=== PATIENT | female | born 1935 | race African-American/Black ===

== ENCOUNTER 2017-10-28 15:43 | Emergency (ER) | payer MEDICARE, BC ==
[2017-10-28 18:04] LABS: #Lymphocytes 1.5 thou/uL (1.20-3.40); %Basophils 0.4 % (0.0-1.0); %Eosinophils 0.4 % (0.0-10.0); %Lymphocytes 17.8 % (21.0-51.0); %Monocytes 11.2 % (0.0-10.0); %Neutrophils 70.1 % (42.0-75.0); Hemoglobin 11.6 g/dL (12.0-16.0); Mean Corpuscular HGB CONC 31.8 g/dL (32.0-36.0); Mean Corpuscular Volume 94.1 fl (81.0-99.0); Mean Platelet Volume 8.8 fL (7.4-10.4); Platelet Count 246 thou/uL (130-400); RBC Distribution Width 13.7 % (11.5-14.5); Red Blood Cell (RBC) Count 3.86 mill/uL (4.20-5.40); White Blood Cell (WBC) Count 8.5 thou/uL (4.8-10.8)
[2017-10-28 18:19] LABS: ALT (SGPT) 9 U/L (8-55); AST (SGOT) 11 U/L (5-34); Albumin 3.7 g/dL (3.4-4.8); Alkaline Phosphatase 82 U/L (40-150); Anion Gap 17 mmol/L (10-20); BUN (Urea Nitrogen) 36 mg/dL (9.8-20.1); Bilirubin, Total 0.2 mg/dL (0.2-1.2); Calc. Creatinine Clearance 0 mL/min (70-130); Calcium 8.3 mg/dL (7.8-10.44); Carbon Dioxide 22 mmol/L (23-31); Chloride 108 mmol/L (98-107); Estimated GFR-MDRD 28; Globulin 3.2 g/dL (2.4-3.5); Glucose 90 mg/dL (83-110); Potassium 4.6 mmol/L (3.5-5.1); Protein, Total 6.9 g/dL (6.0-8.3); Sodium 142 mmol/L (136-145)
[2017-10-28] MEDS ORDERED: methylPREDNISolone Sod Succ/PF 125 MG/2 ML VIAL ONE (18:20)
[2017-10-28 18:26] LABS: CKMB 2.1 ng/mL (0-6.6); Troponin I Less than 0.010 ng/mL (< 0.028)
--- NOTE | 2017-10-28 18:32 | RAD ---
PORTABLE CHEST: 10/28/17 HISTORY: Cough, sore throat. COMPARISON: 05/24/17 exam. Heart size is within normal limits. There is increased density in the right infrahilar region. This d oes not obscure the right heart border and would suggest some right lower lobe infiltrate. IMPRESSION: Findings suggesting some right lower lobe infiltrate. POS: [facility]
--- NOTE | 2017-11-25 17:33 | EKG ---
Test Reason : DIAGNOSING PURPOSES Blood Pressure : / mmHG Vent. Rate : 078 BPM Atrial Rate : 078 BPM P-R Int : 190 ms QRS Dur : 166 ms QT Int : 418 ms P-R-T Axes : 066 -72 018 degrees QTc Int : 476 ms Normal sinus rhythm Right bundle branch block Left anterior fascicular block Bifascicular block Minimal voltage criteria for LVH, may be normal variant Possible Lateral infarct , age undetermined Abnormal ECG Confirmed by TYLER THOMPSON, JARETT ([id number]), electron gun assembler GIN DAVIS ([id number]) on 11/25/2017 5:33:11 PM Referred By: Confirmed By:JARETT SCOTT MD
== END 2017-10-28 19:26 | disposition home or self-care (01) ==
LOC: ERS 15:43
DX: J18.9 Pneumonia, unspecified organism (principal); J43.9 Emphysema, unspecified; E11.9 Type 2 diabetes mellitus without complications; E78.5 Hyperlipidemia, unspecified; I10 Essential (primary) hypertension; F17.210 Nicotine dependence, cigarettes, uncomplicated
CPT/HCPCS: 71045; 80053; 82553; 83605; 83880; 84484; 85025; 93005; 94640; 96374; 96375; J0696; J2930; J7620

== ENCOUNTER 2018-01-04 10:22 | Outpatient (CLI) | payer MEDICARE, BC ==
--- NOTE | 2018-01-04 12:15 | RAD ---
CHEST 2 VIEWS: Date: 01/04/18 HISTORY: Dyspnea. COMPARISON: 10/28/17. FINDINGS: Cardiac silhouette is unremarkable. Pulmonary vasculature is upper limits of normal. Infiltrates at t he lung bases have improved significantly, although linear atelectasis now projects over the superior segment right lower lobe and the left upper lobe. Mediastinum is midline with aortic calcification. Lungs are slightly hyperinflated. IMPRESSION: 1. Interval resolution of bibasilar infiltrates. Development of bilateral linear atelectasis. 2. COPD. 3. Atherosclerosis. POS: [facility]
== END 2018-01-04 10:23 | disposition home or self-care (01) ==
LOC: RAD 10:22
PROVIDERS: ATTEND Internal Medicine Critical Care Medicine
DX: R06.00 Dyspnea, unspecified (principal); J44.9 Chronic obstructive pulmonary disease, unspecified; I70.0 Atherosclerosis of aorta; R91.8 Other nonspecific abnormal finding of lung field
CPT/HCPCS: 71046

== ENCOUNTER 2018-01-24 13:41 | Outpatient (CLI) | payer MEDICARE, BC | END 2018-01-24 13:42 | disposition home or self-care (01) | LOC: BICULT 13:41 | PROVIDERS: ATTEND Urology | DX: D17.71 Benign lipomatous neoplasm of kidney (principal); N28.89 Other specified disorders of kidney and ureter | CPT/HCPCS: 76770 ==

== ENCOUNTER 2018-02-05 10:18 | Outpatient (CLI) | payer MEDICARE, BC ==
--- NOTE | 2018-02-05 11:21 | RAD ---
AP VIEW CHEST: HISTORY: Dyspnea. FINDINGS: AP view chest demonstrates areas of scarring seen in the left mid lung. There is some slight improve d aeration in the inferior aspect right upper lobe opacities noted on patient's previous radiograph f rom 01/04/18. No evidence of acute intrathoracic abnormality is seen. No evidence of effusions seen. IMPRESSION: Areas of scarring in the left mid lung. Otherwise, unremarkable AP view chest. POS: [facility]
== END 2018-02-05 10:19 | disposition home or self-care (01) ==
LOC: RAD 10:18
PROVIDERS: ATTEND Internal Medicine Critical Care Medicine
DX: R06.00 Dyspnea, unspecified (principal); J98.4 Other disorders of lung
CPT/HCPCS: 71046

== ENCOUNTER 2018-04-18 15:17 | Outpatient (CLI) | payer MEDICARE, BC | END 2018-04-18 15:18 | disposition home or self-care (01) | LOC: BICMAMMO 15:17 | PROVIDERS: ATTEND Internal Medicine | DX: Z12.31 Encounter for screening mammogram for malignant neoplasm of breast (principal) | CPT/HCPCS: 77063; 77067 ==

== ENCOUNTER 2018-06-12 13:33 | Outpatient (CLI) | payer MEDICARE, BC ==
--- NOTE | 2018-06-12 15:44 | CT ---
ABDOMEN AND PELVIC CT SCAN WITHOUT IV CONTRAST: 06/12/18 HISTORY: 83-year-old female with history of chronic kidney disease, renal mass. COMPARISON: Prior examination from [facility] 10/02/15. FINDINGS: Linear and parenchymal changes are noted in the lower lobes and lingula and right middle lobe evidenc e for some subsegmental atelectasis and/or scarring, slightly worse from the prior study. Stable some what contracted gallbladder with multiple gallstones without ductal dilatation. 2.6 cm diameter right renal fatty mass and a smaller, approximately 1.1 cm diameter left upper pole renal fatty mass, evid ence for bilateral angiomyolipomas. Nonobstructing right renal calculus. Stable bilateral adrenal song nomas. Normal appearing appendix. Lumbar spine spondylosis with mild anterolisthesis of L4 on L5 with associated stenosis. No obstructing calculus. Colonic diverticulosis without diverticulitis. Fat containing umbilical hernia. IMPRESSION: Stable multiple gallstones in a contracted gallbladder, bilateral adrenal adenomas, and bilateral vita al angiomyolipomas. Stable lumbar spine canal stenosis with anterolisthesis at L4-L5. Stable fat cont aining umbilical hernia. Linear parenchymal changes in both lungs evidence for scarring or subsegment al atelectasis slightly worse than when compared to the prior study. No evidence for other significan t acute process. POS: [facility]
== END 2018-06-12 13:34 | disposition home or self-care (01) ==
LOC: BICCT 13:33
PROVIDERS: ATTEND Internal Medicine Nephrology
DX: N18.3 Chronic kidney disease, stage 3 (moderate) (principal); K80.20 Calculus of gallbladder without cholecystitis without obstruction; D35.02 Benign neoplasm of left adrenal gland; D35.01 Benign neoplasm of right adrenal gland; D17.71 Benign lipomatous neoplasm of kidney; M48.061 Spinal stenosis, lumbar region without neurogenic claudication; M43.16 Spondylolisthesis, lumbar region; K42.9 Umbilical hernia without obstruction or gangrene
CPT/HCPCS: 74176

== ENCOUNTER 2018-06-19 14:01 | Outpatient (CLI) | payer MEDICARE, BC ==
[2018-06-19 14:53] LABS: #Eosinphils 0.3 thou/uL (0.0-0.7); #Lymphocytes 2.3 thou/uL (1.20-3.40); #Monocytes 0.5 thou/uL (0.11-0.59); %Basophils 0.3 % (0.0-1.0); %Eosinophils 4.2 % (0.0-10.0); %Lymphocytes 32.6 % (21.0-51.0); %Monocytes 7.3 % (0.0-10.0); %Neutrophils 55.6 % (42.0-75.0); Hemoglobin 11.7 g/dL (12.0-16.0); Mean Corpuscular HGB CONC 31.9 g/dL (32.0-36.0); Mean Corpuscular Hemoglobin 30.6 pg (27.0-31.0); Mean Corpuscular Volume 95.9 fL (78.0-98.0); Mean Platelet Volume 8.6 fL (7.4-10.4); Platelet Count 245 thou/uL (130-400); RBC Distribution Width 13.8 % (11.5-14.5); Red Blood Cell (RBC) Count 3.83 mill/uL (4.20-5.40); White Blood Cell (WBC) Count 7.2 thou/uL (4.8-10.8)
[2018-06-19 15:10] LABS: ALT (SGPT) 9 U/L (8-55); AST (SGOT) 9 U/L (5-34); Albumin 3.8 g/dL (3.4-4.8); Alkaline Phosphatase 59 U/L (40-150); Anion Gap 13 mmol/L (10-20); BUN (Urea Nitrogen) 33 mg/dL (9.8-20.1); Bilirubin, Total 0.3 mg/dL (0.2-1.2); Calc. Creatinine Clearance 0 mL/min (70-130); Calcium 8.6 mg/dL (7.8-10.44); Carbon Dioxide 25 mmol/L (23-31); Chloride 109 mmol/L (98-107); Estimated GFR-MDRD 27; Globulin 2.9 g/dL (2.4-3.5); Glucose 143 mg/dL (83-110); Potassium 4.6 mmol/L (3.5-5.1); Protein, Total 6.7 g/dL (6.0-8.3); Sodium 142 mmol/L (136-145)
--- NOTE | 2018-06-19 15:31 | RAD ---
CHEST 2 VIEWS: HISTORY: Preoperative exam. COMPARISON: None. FINDINGS: Atherosclerosis of the aorta. Enlarged cardiac silhouette. The pulmonary vessels and hilum are norm al. Costophrenic angles are clear. Patchy interstitial opacities, without consolidation or mass. N o pneumothorax or osseous abnormalities. IMPRESSION: 1. Atherosclerosis. 2. Patchy interstitial opacities which may be due to edema or infiltrate. POS: [facility]
== END 2018-06-19 14:02 | disposition home or self-care (01) ==
LOC: LABBT 14:01
PROVIDERS: ATTEND Specialist
DX: Z01.818 Encounter for other preprocedural examination (principal); K80.20 Calculus of gallbladder without cholecystitis without obstruction
CPT/HCPCS: 71046; 80053; 85025; 93005; 93010

== ENCOUNTER 2018-06-20 10:33 | Day surgery (SDC) | payer MEDICARE, BC ==
[2018-06-19 14:54] VITALS: BMI 33.5
--- NOTE | 2018-06-20 09:03 | HP ---
HISTORY OF PRESENT ILLNESS: Jonna León is an 83-year-old female with COPD, followed by Dr. Ciro Vazquez and Dr. Cohen. The patient has symptomatic gallstones, having undergone a CT scan of abdom en and pelvis noting multiple gallstones and a contracted gallbladder, lumbar stenosis, small fat con taining umbilical hernia. She is on home oxygen and uses nebulizers. I have spoken with Dr. Vazquez w ho believes she is safe to proceed from a pulmonary standpoint with laparoscopic cholecystectomy. Ciro goodwin patient had several episodes of biliary attacks in the last few months. MEDICATIONS: Symbicort inhalational twice a day, fumarate dihydrate aerosol inhalers twice a day, bu propion XL 150 daily, VESIcare daily, Protonix 40 mg daily, glimepiride 1 mg oral tablet with breakfa st, Coreg 25 mg b.i.d., Spiriva hand inhaler 1-2 times a day, monohydrate, furosemide 20 mg a day, po tassium chloride ER 20 mEq a day. Mitiglinide 120 mg a day, felodipine 2.5 mg daily, extended relea se. Simvastatin 40 mg a day. SOCIAL HISTORY: The patient lives with her sister in [place]. She is followed by Dr. Bj Ly. She had a stress test recently in the past that was negative for a ny cardiac ischemia. . PAST MEDICAL HISTORY: Diabetes mellitus, COPD on inhalers and home oxygen, followed by Dr. Vazquez, hy pertension, followed by Dr. Zo Juan medically. TOBACCO: None for five years, abuse prior to that. PAST SURGICAL HISTORY: 1. Colonoscopy in the past. 2. Left total knee replacement. 3. Total abdominal hysterectomy with bilateral salpingo-oophorectomy. REVIEW OF SYSTEMS: Ten point noncontributory. Review of systems other than above noncontributory. PHYSICAL EXAMINATION: VITAL SIGNS: Weight 196 pounds, 5 foot 4 inches, 131/63, 75, 98.1 degrees. HEENT: Unremarkable. LUNGS: Clear to auscultation. CARDIAC: Regular rate and rhythm without murmur or gallop. ABDOMEN: Soft. LUNGS: Coarse breath sounds, no wheezing. ABDOMEN: Soft, nontender. EXTREMITIES: Unremarkable. ASSESSMENT AND PLAN: 1. Symptomatic biliary colic gallstones, chronic cholecystitis, I recommend laparoscopic video chol ecystectomy. Risk of infection, bleeding, visceral and biliary injury, open procedure discussed. In haler prep preoperatively. 2. Chronic obstructive pulmonary disease on inhalers and home oxygen. I have discussed with Dr. Arce er, plan preoperative nebulizer treatment and plan outpatient surgery; however, if after postoperativ e observation she needs admission, we will keep her for her comorbidities and lung disease. 3. Diabetes mellitus. 4. Hypertension. 5. Elevated cholesterol.
[2018-06-20] MEDS ORDERED: Lidocaine 1% PF 5 ML VIAL ONE (11:22)
[2018-06-20] MEDS ORDERED: Ondansetron HCl/PF 4 MG/2 ML Vial ONE (11:22)
[2018-06-20] MEDS ORDERED: Succinylcholine Chloride 20 MG/ML 10 ml SYRINGE FS ONE (11:22)
[2018-06-20] MEDS ORDERED: PROPOFOL 200 MG/20 ML VIAL ONE (11:22)
[2018-06-20] MEDS ORDERED: Ketorolac Tromethamine 30 MG/ML VIAL ONE (11:56)
[2018-06-20] MEDS ORDERED: Levofloxacin 500 mg/D5W 100 ml Premix Bag ONE (11:56)
[2018-06-20] MEDS ORDERED: Bupivacaine HCl 0.5%/Epinephrine 1:200,000/PF 30 ml Vial ONE (12:49)
[2018-06-20] MEDS ORDERED: Fentanyl 100 MCG/2 ML VIAL ONE ×3 (12:58→14:06)
[2018-06-20] MEDS ORDERED: Phenylephrine HCL 10 MG/ML VIAL ONE (13:03)
[2018-06-20] MEDS ORDERED: PHENYLEPHRINE-NS 100 MCG/ML 10 ML SYRINGE ONE (13:03)
[2018-06-20] MEDS ORDERED: SUGAMMADEX SODIUM 200 MG/2 ML VIAL ONE (13:42)
--- NOTE | 2018-06-20 14:09 | OP ---
DATE OF OPERATION: 06/20/2018 PREOPERATIVE DIAGNOSES: Chronic cholecystitis, cholelithiasis, chronic obstructive pulmonary disease , home oxygen dependent. POSTOPERATIVE DIAGNOSES: Chronic cholecystitis, cholelithiasis, chronic obstructive pulmonary diseas e, home oxygen dependent. PROCEDURE: Laparoscopic video cholecystectomy. SURGEON: Lokesh Moe M.D. ANESTHESIA: General. Local 0.5% Marcaine with epinephrine 30 mL. PROCEDURE IN DETAIL: The patient was taken to the operating room where under general anesthesia, abd omen was prepared with ChloraPrep, draped in routine fashion. Local anesthetic 0.5% Marcaine with ep inephrine infiltrated into skin and subcutaneous tissue about all port sites, total volume used. Sup raumbilical incision made and pneumoperitoneum to 15 mmHg obtained with the Veress needle placing wit h a 5 port and laparoscope inserted. Right subxiphoid incision made and 11 port placed. Right subco stal incision made mid clavicular axillary lines and 5 ports placed. Liver appeared to be normal. F undus of gallbladder grasped at the cephalad, tibia grasped and reflected laterally. Cystic artery a nd duct dissected free. Critical view obtained. Cystic artery and duct doubly clipped proximally, d ivided, and gallbladder dissected free of the liver bed, obtaining good hemostasis by division of fin al peritoneal attachments. Gallbladder and small stones removed and submitted to Pathology. Good he mostasis ensured with the cautery. Irrigant and pneumoperitoneum evacuated. All instruments removed and all skin incisions approximated with interrupted subdermal 4-0 Monocryl and DermaGlue applied.
[2018-06-20] MEDS ORDERED: HYDROcodone/Acetaminophen 5/325 mg Tablet ONE (15:37)
== END 2018-06-20 16:35 | disposition home or self-care (01) ==
LOC: SDC 10:33
PROVIDERS: ATTEND Specialist
PROC: 0FT44ZZ Resection of Gallbladder, Percutaneous Endoscopic Approach (ICD-10-PCS; principal; 2018-06-20)
DX: K80.10 Calculus of gallbladder with chronic cholecystitis without obstruction (principal); E11.9 Type 2 diabetes mellitus without complications; I10 Essential (primary) hypertension; J44.9 Chronic obstructive pulmonary disease, unspecified; Z99.81 Dependence on supplemental oxygen; Z79.899 Other long term (current) drug therapy; Z79.84 Long term (current) use of oral hypoglycemic drugs
CPT/HCPCS: 88304; 94640; 96374; 96376; J0131; J0670; J1885; J1956; J2001; J2370; J2405; J2704; J3010; J7620

== ENCOUNTER 2019-02-19 15:03 | Outpatient (CLI) | payer MEDICARE, BC ==
--- NOTE | 2019-02-19 17:32 | ULT ---
ULTRASOUND RETROPERITONEUM COMPLETE: (RENAL) 02/19/19 HISTORY: 83-year-old female with bilateral renal tumors, angiomyolipoma. FINDINGS: At the lower pole of the right kidney, there is an approximately 4 x 3 x 3 cm hyperechoic solid mass. This corresponds to the mixed fatty and soft tissue attenuation mass demonstrated no previous CTs of 06/12/18, 10/02/15, and 06/26/15. The much smaller fatty mass at the posterior aspect of the upper pole of the left kidney demonstrated on previous CTs is not visible on this ultrasound. There is no hydronephrosis. Right kidney measures 8.5 x 4.5 x 5 cm. Left kidney measures 9.5 x 5 x 5.5 cm. Urinary bladder volume is 125 mL at the time of this scan. IMPRESSION: 1. Approximately 4 cm right renal lower pole benign angiomyolipoma. 2. The much smaller angiomyolipoma of the left renal upper pole is not visible because of its sm all size, position, and body habitus. TRISTAN Meng POS: [facility]
== END 2019-02-19 15:04 | disposition home or self-care (01) ==
LOC: BICULT 15:03
PROVIDERS: ATTEND Urology
DX: D30.01 Benign neoplasm of right kidney (principal); D30.02 Benign neoplasm of left kidney
CPT/HCPCS: 76770

== ENCOUNTER 2019-03-19 12:52 | Outpatient (CLI) | payer MEDICARE, BC ==
--- NOTE | 2019-03-19 13:19 | RAD ---
TWO VIEWS CHEST: 03/19/19 PROVIDED CLINICAL HISTORY: Dyspnea. COMPARISON: 06/19/18. FINDINGS: The cardiac and mediastinal silhouette is within normal limits. Prominence of the pulmonary vasculatu re persists. Vascular calcifications is noted. No focal consolidation, pleural fluid or pneumothorax apparent. IMPRESSION: Stable radiographic appearance of the chest. POS: [facility]
== END 2019-03-19 12:53 | disposition home or self-care (01) ==
LOC: RAD 12:52
PROVIDERS: ATTEND Internal Medicine Critical Care Medicine
DX: R06.00 Dyspnea, unspecified (principal)
CPT/HCPCS: 71046

== ENCOUNTER 2019-05-16 13:54 | Outpatient (CLI) | payer MEDICARE, BC ==
--- NOTE | 2019-05-16 14:55 | MMO ---
Bilateral MAMMO Bilat Screen [facility]. CLINICAL HISTORY: Patient is 84 years old and is seen for screening. The patient has no family history of breast cancer. The patient has no personal history of cancer. VIEWS: The views performed were: bilateral craniocaudal with tomosynthesis and bilateral mediolateral oblique with tomosynthesis. FILMS COMPARED: The present examination has been compared to prior imaging studies performed at [facility] on 03/12/2015, 03/31/2016, 04/04/2017 and 04/18/2018. MAMMOGRAM FINDINGS: There are scattered fibroglandular densities. There are stable benign appearing calcifications seen in both breasts. There are also vascular calcifications. There are no suspicious masses, suspicious calcifications, or new areas of architectural distortion. IMPRESSION: THERE IS NO MAMMOGRAPHIC EVIDENCE OF MALIGNANCY. A ROUTINE FOLLOW-UP MAMMOGRAM IN 1 YEAR IS RECOMMENDED. THE RESULTS OF THIS EXAM WERE SENT TO THE PATIENT. ACR BI-RADS Category 2 - Benign finding MAMMOGRAPHY NOTE: 1. A negative mammogram report should not delay a biopsy if a dominant of clinically suspicious mass is present. 2. Approximately 10% to 15% of breast cancers are not detected by mammography. 3. Adenosis and dense breasts may obscure an underlying neoplasm. Reported by: PHAN VARMA MD Electonically Signed: [id number]
== END 2019-05-16 13:55 | disposition home or self-care (01) ==
LOC: BICMAMMO 13:54
PROVIDERS: ATTEND Internal Medicine
DX: Z12.31 Encounter for screening mammogram for malignant neoplasm of breast (principal)
CPT/HCPCS: 77063; 77067

== ENCOUNTER 2019-08-06 13:39 | Emergency (ER) | payer MEDICARE, BC ==
--- NOTE | 2019-08-06 14:50 | CT ---
CT BRAIN WITHOUT CONTRAST: HISTORY: Trauma. Fall. Headache. Patient on blood thinners. FINDINGS: There is a calcified 19 mm meningioma in the left posterior parietal region. No evidence of acute inf arct, hemorrhage, midline shift or abnormal extraaxial fluid collections is seen. The ventricular siz e is appropriate and the basilar cisterns are patent. Benign appearing calcifications are seen in the basal ganglia bilaterally. The bony calvarium is intact. The visualized paranasal sinuses are well a erated. IMPRESSION: No CT evidence of acute intracranial process. POS: [facility]
--- NOTE | 2019-08-06 14:51 | RAD ---
Exam:4 views left knee HISTORY: Pain. Trauma. COMPARISON: None FINDINGS: There is prepatellar soft tissue swelling. There is irregularity involving the distal femur . Possibility of a periprosthetic fracture at the level of the distal femur cannot be excluded. Further evaluation with CT is recommended. Vascular calcifications are noted. No significant joint ef fusion IMPRESSION: 1. Particular soft tissue swelling. 2. Questionable fracture involving the distal femur, periprosthetic location. CT if clinically warran bisi.
--- NOTE | 2019-08-06 14:53 | RAD ---
RADIOGRAPH CHEST 1 VIEW: DATE: 08/06/2019 HISTORY: 84-year-old female status post acute chest trauma FINDINGS: The thoracic aorta is tortuous and ectatic. There is no evidence of airspace density, pulmonary edema , or pneumothorax. The lateral costophrenic angles are not effaced. Pulmonary scars at bilateral lower lung zones. No interval change since 03/19/2019. No grossly displaced rib fracture identified. IMPRESSION: 1) No acute pulmonary findings. 2) ectasia of thoracic aorta. 3) bibasilar pulmonary scars.
[2019-08-06 14:59] LABS: #Eosinphils 0.5 thou/uL (0.0-0.7); #Lymphocytes 1.4 thou/uL (1.20-3.40); #Monocytes 0.6 thou/uL (0.11-0.59); %Basophils 0.8 % (0.0-1.0); %Eosinophils 7.8 % (0.0-10.0); %Lymphocytes 21.4 % (21.0-51.0); %Monocytes 8.7 % (0.0-10.0); %Neutrophils 61.4 % (42.0-75.0); Hemoglobin 11.5 g/dL (12.0-16.0); Mean Corpuscular HGB CONC 32.2 g/dL (32.0-36.0); Mean Corpuscular Hemoglobin 30.7 pg (27.0-31.0); Mean Corpuscular Volume 95.3 fL (78.0-98.0); Mean Platelet Volume 9.9 fL (7.4-10.4); Platelet Count 202 thou/uL (130-400); RBC Distribution Width 15.2 % (11.5-14.5); Red Blood Cell (RBC) Count 3.74 mill/uL (4.20-5.40); White Blood Cell (WBC) Count 6.5 thou/uL (4.8-10.8)
[2019-08-06 15:23] LABS: ALT (SGPT) 12 U/L (8-55); AST (SGOT) 14 U/L (5-34); Albumin 3.8 g/dL (3.4-4.8); Alkaline Phosphatase 79 U/L (40-110); Anion Gap 12 mmol/L (10-20); BUN (Urea Nitrogen) 18 mg/dL (9.8-20.1); Bilirubin, Total 0.3 mg/dL (0.2-1.2); CK (CPK) 206 U/L (29-168); Calc. Creatinine Clearance 0 mL/min (70-130); Calcium 9.1 mg/dL (7.8-10.44); Carbon Dioxide 21 mmol/L (23-31); Chloride 109 mmol/L (98-107); Estimated GFR-MDRD 34; Globulin 3.1 g/dL (2.4-3.5); Glucose 159 mg/dL (83-110); Lipase 19 U/L (8-78); Potassium 4.4 mmol/L (3.5-5.1); Protein, Total 6.9 g/dL (6.0-8.3); Sodium 138 mmol/L (136-145)
--- NOTE | 2019-08-06 15:34 | CT ---
CT LEFT KNEE WITHOUT CONTRAST: INDICATIONS: History of fall with left knee injury. COMPARISON: Left knee radiograph dated 08/06/2019. FINDINGS: No displaced fracture is grossly evident. Beam scatter artifact from the patient's left total knee pr osthesis slightly limits image detail. There is diffuse osteopenia. There is scattered vascular calci fication. There is a large soft tissue hematoma overlying the anterior aspect of the left knee, measu ring approximately 11.5 x 8.7 cm. The prosthetic components appear to project in the expected locatio n. The proximal fibula is intact. IMPRESSION: 1. No evidence for a periprosthetic fracture. 2. Large soft tissue hematoma of the anterior left knee. POS: [facility]
[2019-08-06] MEDS ORDERED: Morphine 4 MG/ML VIAL ONE (15:35)
== END 2019-08-06 16:19 | disposition home or self-care (01) ==
LOC: ERS 13:39
DX: S09.90XA Unspecified injury of head, initial encounter (principal); S80.02XA Contusion of left knee, initial encounter; J44.9 Chronic obstructive pulmonary disease, unspecified; E11.9 Type 2 diabetes mellitus without complications; E78.5 Hyperlipidemia, unspecified; I10 Essential (primary) hypertension; W01.10XA Fall on same level from slipping, tripping and stumbling with subsequent striking against unspecified object, initial encounter
CPT/HCPCS: 36415; 70450; 71045; 80053; 82550; 83690; 83880; 84484; 85025; 93005; 96374; J2270

== ENCOUNTER 2019-09-16 13:12 | Outpatient (CLI) | payer MEDICARE, BC ==
--- NOTE | 2019-09-16 13:59 | ULT ---
US Renal Bilateral STANDARD: 09/16/2019 12:00 AM CLINICAL HISTORY: Bilateral angiomyolipomas.. STUDY: Renal ultrasound COMPARISON: 02/19/2019 FINDINGS: Right kidney: Echogenicity: Normal. Masses/cysts: 3.3 cm hyperechoic lesion Hydronephrosis: None. Calcifications: None. Length: 11.3 cm Left kidney: Echogenicity: Normal. Masses/cysts: 2.8 cm hyperechoic lesion. Hydronephrosis: None. Calcifications: None. Length: 9.7 cm Limited visualization of the urinary bladder is unremarkable. IMPRESSION: Bilateral hyperechoic masses likely represent angiomyolipomas. These are grossly stable. The mass on the right measures slightly smaller but this likely is artifactual.
== END 2019-09-16 13:13 | disposition home or self-care (01) ==
LOC: BICULT 13:12
PROVIDERS: ATTEND Urology
DX: D17.71 Benign lipomatous neoplasm of kidney (principal); N28.89 Other specified disorders of kidney and ureter
CPT/HCPCS: 76770

== ENCOUNTER 2019-10-15 09:57 | Outpatient (CLI) | payer MEDICARE, BC ==
--- NOTE | 2019-10-15 10:26 | RAD ---
Right knee:2 views INDICATIONS:Knee pain COMPARISON:None FINDINGS: Joint spaces are maintained. Mild degenerative spurring from the condyles. Minimal spurring from the posterior patella. There may be small joint effusion. No fracture or acute abnormality. No soft tissue abnormality. IMPRESSION: Mild degenerative changes without acute process.
== END 2019-10-15 09:58 | disposition home or self-care (01) ==
LOC: BICRAD 09:57
PROVIDERS: ATTEND Internal Medicine
DX: M25.561 Pain in right knee (principal); M17.11 Unilateral primary osteoarthritis, right knee

== ENCOUNTER 2020-02-23 10:08 | Inpatient (IN) | payer MEDICARE, BC, OTHER ==
[2020-02-23] MEDS ORDERED: cefTRIAXone\\ROCEPHIN 2 GM VIAL ONE (10:28)
[2020-02-23] MEDS ORDERED: Magnesium 2 GM/50 ML BAG (IN WATER) ONE (10:28)
[2020-02-23] MEDS ORDERED: methylPREDNISolone Sod Succ/PF 125 MG/2 ML VIAL ONE (10:28)
[2020-02-23] MEDS ORDERED: Sodium Chloride 0.9% 0 ML ONE (10:28)
[2020-02-23] MEDS ORDERED: Azithromycin 500 MG VIAL ONE (10:28)
[2020-02-23 10:51] LABS: Hemoglobin 13.2 g/dL (12.0-16.0); Mean Corpuscular HGB CONC 31.6 g/dL (32.0-36.0); Mean Corpuscular Hemoglobin 29.5 pg (27.0-31.0); Mean Corpuscular Volume 93.5 fL (78.0-98.0); Mean Platelet Volume 10.9 fL (7.4-10.4); Platelet Count 238 thou/uL (130-400); RBC Distribution Width 16.5 % (11.5-14.5); Red Blood Cell (RBC) Count 4.48 mill/uL (4.20-5.40); White Blood Cell (WBC) Count 23.1 thou/uL (4.8-10.8)
[2020-02-23 10:53] LABS: Actual Bicarbonate (HCO3a) 19.3 mEq/L (22-28); Analyzer IN Cardio ER; Base Excess (BEa) -7.2 mEq/L (-2.0 to +3.0); CO2 Tension 42.4 mmHg (35.0-45.0); Calcium, Ionized (arterial) 1.17 mmol/L (1.12-1.30); Carboxyhemoglobin (COHb) 0.7 gm% (0.0-3.0); Hemoglobin (Hb) 12.6 g/dL (12.0-16.0); O2 Tension (PaO2), arterial 66.4 mmHg (> 60.0); Potassium - ABG Lab 4.69 mmol/L (3.70-5.30); pH, Arterial 7.28 (7.35-7.45)
[2020-02-23 10:54] LABS: Puncture Site LR
[2020-02-23 11:00] LABS: ALT (SGPT) 13 U/L (8-55); AST (SGOT) 11 U/L (5-34); Albumin 3.5 g/dL (3.4-4.8); Alkaline Phosphatase 140 U/L (40-110); Anion Gap 20 mmol/L (10-20); BUN (Urea Nitrogen) 72 mg/dL (9.8-20.1); CK (CPK) 83 U/L (29-168); Calc. Creatinine Clearance 0 mL/min (70-130); Calcium 9.5 mg/dL (7.8-10.44); Carbon Dioxide 19 mmol/L (23-31); Chloride 102 mmol/L (98-107); Estimated GFR-MDRD 11; Glucose 136 mg/dL (83-110); Lipase 8 U/L (8-78); Potassium 4.8 mmol/L (3.5-5.1); Protein, Total 7.5 g/dL (6.0-8.3); Sodium 136 mmol/L (136-145)
[2020-02-23 11:20] LABS: Band 41 % (5-11); Dohle Bodies SLIGHT; Eosinophils 3 % (0-10); Large Platelets SLIGHT; MDiff Complete? YES; Metamyelocyte 2 % (0-0); Monocytes 6 % (0-10); Myelocyte 7 % (0-0); Neutrophil 41 % (42-75); Ovalocytes SLIGHT = 2-5 cells (100X) (0-1/hpf); Platelet Morphology Comment Appears Adequate; Poikilocytosis SLIGHT = 6-15 cells (100X) (0-5/hpf); RBC Morphology Normal; Schistocytes SLIGHT = 2-5 cells (100X) (0-1/hpf); Toxic Granulation MODERATE
[2020-02-23 11:23] LABS: CKMB 1.9 ng/mL (0-6.6)
[2020-02-23 12:06] LABS: INR-International Normal Ratio 1.2; Prothrombin Time 15.5 sec (12.0-14.7)
[2020-02-23 12:07] LABS: PTT 36.8 sec (22.9-36.1)
[2020-02-23] MEDS ORDERED: Rocuronium Bromide 10 MG/ML (10ML VIAL) ONE (12:51)
[2020-02-23] MEDS ORDERED: Ketamine 50 MG/ML (10ML VIAL) ONE (12:51)
[2020-02-23] MEDS ORDERED: Fentanyl 100 MCG/2 ML VIAL ONE (12:58)
--- NOTE | 2020-02-23 13:11 | RAD ---
PORTABLE CHEST: History: Shortness of breath starting Monday. Comparison: 08-06-19 FINDINGS: Heart size appears slightly enlarged. There is more linear parenchymal change in the left base which could represent atelectasis versus infiltrate. A more confluent change is seen within what is probabl y the right middle lobe more lateral segment. It is possible that some of this may be related to locu lated fluid. A PA and lateral chest film would be helpful with better assessment. IMPRESSION: Bibasilar lung changes. Changes in the right base could represent a pneumonic type process. Overall d ensity does raise the possibility that there could be some fluid loculated in the fissure causing thi s appearance. A PA and lateral chest film would be helpful in assessment. POS: [facility]
[2020-02-23] MEDS ORDERED: Dextrose 50% Abboject 50 ML SYRINGE SLOW IVP PRN (13:35)
[2020-02-23] MEDS ORDERED: Dextrose 5% in Water 1,000 ML IV PRN (13:35)
[2020-02-23] MEDS ORDERED: Acetaminophen 325 MG Suppository PR PRN (13:36)
[2020-02-23] MEDS ORDERED: Acetaminophen 325 MG/10.15 ML UDCUP PO PRN (13:36)
[2020-02-23] MEDS ORDERED: Bisacodyl 10 MG SUPP PR PRN (13:36)
[2020-02-23] MEDS ORDERED: Ondansetron PF 4 MG/2 ML Vial IVP PRN (13:40)
[2020-02-23] MEDS ORDERED: Ondansetron ODT 4 MG TAB PO PRN (13:40)
[2020-02-23] MEDS ORDERED: Acetaminophen 325 MG TAB PO PRN (13:40)
[2020-02-23 13:42] LABS: Analyzer IN Cardio ER; Base Excess (BEa) -12.4 mEq/L (-2.0 to +3.0); CO2 Tension 46.2 mmHg (35.0-45.0); Calcium, Ionized (arterial) 1.08 mmol/L (1.12-1.30); Carboxyhemoglobin (COHb) 0.7 gm% (0.0-3.0); O2 Tension (PaO2), arterial 82.5 mmHg (> 60.0); Potassium - ABG Lab 4.61 mmol/L (3.70-5.30)
[2020-02-23] MEDS ORDERED: Bacteriostatic Water 30 ML VIAL FS PRN (13:43)
[2020-02-23 13:47] LABS: Puncture Site LRA; pH, Arterial 7.16 (7.35-7.45)
[2020-02-23] MEDS ORDERED: Nitroglycerin 0.4 MG TAB (25 Tab Bottle) PO PRN (13:52)
[2020-02-23] MEDS ORDERED: hydrALAZINE 20 MG/ML VIAL SLOW IVP PRN (13:53)
[2020-02-23] MEDS ORDERED: Propofol 1,000 MG/100 ML VIAL IV PRN (13:55)
[2020-02-23] MEDS ORDERED: Morphine 2 MG/ML SYRINGE SLOW IVP PRN (13:55)
[2020-02-23] MEDS ORDERED: Propofol BOLUS 1,000 MG/100 ML VIAL IV PRN (13:55)
--- NOTE | 2020-02-23 13:57 | RAD ---
PORTABLE CHEST: History: Endotracheal tube placement. FINDINGS: Endotracheal tube is in place. The tip is just above the level of the parth and directed slightly to wards to the right mainstem bronchus. It lies approximately 1 cm above the parth. The bibasilar infi ltrates appear stable. IMPRESSION: Endotracheal and NG tube placement. Endotracheal tube is approximately 1 cm above the parth. NG tube is in the fundus region of the stomach. POS: [facility]
--- NOTE | 2020-02-23 14:20 | HP ---
PRIMARY CARE DOCTOR: Zo Juan MD CHIEF COMPLAINT: Shortness of breath. HISTORY OF PRESENT ILLNESS: The patient is an 84-year-old female with COPD and chronic respiratory failure, on home oxygen, who presented to the emergency room by EMS with worsening shortness of breath that has been worsening shortness of breath of 2 days' duration. Her shortness of breath got worse last night. EMS was subsequently called. She tried using inhalers without much relief. The shortness of breath was worse on minimal exertion. She also had cough with minimal expectoration. No recent immobilization, travel, or lower extremity edema reported. History is limited at this time due to the patient's current clinical condition. Most of the history was obtained from the patient's sister, Rosemarie, who is the DPOA. Her contact number is [phone]. In the emergency room, the patient's initial vital signs showed temperature 98.4 with respirations of 27, pulse rate of 131 with O2 saturation of 92% on 4 L nasal cannula. She was placed on mechanical ventilation after failure of noninvasive positive-pressure ventilation. PAST MEDICAL HISTORY: 1. COPD, on home oxygen. 2. Coronary artery disease. 3. Diabetes mellitus, type 2. 4. Hypertension. 5. CKD, stage 4. 6. History of tobacco abuse. 7. Hiatal hernia. 8. History of peptic ulcer disease. 9. Diverticulosis. 10. Congestive heart failure. PAST SURGICAL HISTORY: 1. Hysterectomy. 2. Cardiac catheterization. 3. Left knee replacement. ALLERGIES: NO KNOWN DRUG ALLERGIES. CURRENT HOME MEDICATIONS: We will try to obtain accurate list of medication from the pharmacy or the family. Unable to obtain at this time. SOCIAL HISTORY: The patient currently lives at home with her sister and other family members. No current use of smoking, alcohol, or drug use. The patient is a former smoker. FAMILY HISTORY: Heart disease and hypertension runs in her family. REVIEW OF SYSTEMS: All other review of systems were reviewed and were found negative. PHYSICAL EXAMINATION: VITAL SIGNS: As discussed above. GENERAL: An 84-year-old female, in dgczntep-ib-mkkxmd respiratory distress, on noninvasive positive-pressure ventilation. HEENT: Head, atraumatic and normocephalic. Sclerae anicteric. No oral lesion. NECK: Supple. JVP appears to be elevated. No carotid bruit. LUNGS: Bibasilar rales with rhonchi. There was significant accessory muscle use. There was scattered wheezing. HEART: S1 and S2 present, tachycardic. No rubs or gallops. Regular rhythm. ABDOMEN: Soft. Bowel sounds present. No guarding or rigidity. EXTREMITIES: No calf tenderness or significant edema. NEUROLOGIC AND PSYCHIATRIC: Cannot be assessed due to current clinical condition. SKIN: Warm and dry. LYMPH NODES: No palpable lymph nodes in the neck. PERIPHERAL VASCULAR: Radial pulses palpable bilaterally. MUSCULOSKELETAL: No joint swelling or tenderness. LABORATORY FINDINGS: CBC showed WBC of 23.1 with 41% bandemia, hemoglobin was 13.2 with platelet 238. INR 1.2. ABG showed pH of 7.28 with pCO2 of 42.4 and PO2 of 66.4 with bicarbonate of 19.3. Chemistry showed sodium 136, potassium 4.8, chloride 102, bicarb 19, BUN 72, creatinine 3.99, baseline creatinine 1.72. Troponin 0.031 with a normal CK-MB. BNP was 155. Cortisol level was 44.1. Chest x-ray by my review showed suspected right basilar pneumonia. Echocardiogram from 2014 showed ejection fraction 20% to 25 percent with inzitqbz-cz-ktztry mitral regurgitation, moderate tricuspid regurgitation. Telemetry monitoring by my review showed sinus tachycardia. IMPRESSION: 1. Dxqll-ts-wzvgzdm hypoxic respiratory failure. 2. Severe sepsis secondary to right basilar pneumonia with chronic obstructive pulmonary disease exacerbation. Suspected organism appears to be COVID-19 at this time. 3. Acute kidney injury on chronic kidney disease, stage 3. 4. Hypertension. 5. Diabetes mellitus, type 2. 6. Coronary artery disease. 7. Chronic hypoxic respiratory failure, on home oxygen. 8. Former smoker. 9. Dyslipidemia. PLAN: The patient will be monitored in the intensive care unit. We will place on ventilation sedation protocol. Empiric antibiotics including cefepime will be started. We will add IV steroids. COVID-19 will be ruled out. GI and DVT prophylaxis. We will continue aspirin and Plavix once verified. We will verify all other home medications. Echocardiogram will be obtained. We will check ABG and chest x-ray in the morning. Family has been updated. Job ID: [id number]
[2020-02-23] MEDS ORDERED: Norepinephrine 8 MG/0.9% NS 250 ML ONE (14:21)
[2020-02-23 14:24] LABS: Bacteria/HPF None Seen HPF (None Seen); Bilirubin Negative (Negative); Blood, Urine Negative (Negative); Clarity Extra Turbid (Clear); Glucose, Urine (Dipstick) Normal (Negative); Leukocyte Negative Leu/uL (Negative); Nitrite Negative (Negative); Protein, Urine (Dipstick) 50 mg/dL (Neg-Trace); RBC/HPF 0-3 HPF (0-3); WBC/HPF None Seen HPF (0-3)
[2020-02-23] MEDS: Cefepime 1 GM in Sodium Chloride 0.9% 100 ML IVPB SCH (15:13)
[2020-02-23] MEDS: Heparin 5,000 UNITS/ML VIAL SC SCH ×2 (15:13→20:04)
[2020-02-23 16:04] LABS: Lactic Acid 1.8 mmol/L (0.5-2.2)
[2020-02-23 16:05] LABS: Troponin I 0.034 ng/mL (< 0.028)
[2020-02-23] MEDS ORDERED: Norepinephrine 8 MG/0.9% NS 250 ML IVPB SCH (16:13)
[2020-02-23] MEDS: Ventilator Sedation Protocol 1 EACH FS SCH (16:24)
[2020-02-23] MEDS: methylPREDNISolone Sod Succ 40 MG VIAL IVP SCH ×2 (17:24→23:44)
[2020-02-23] MEDS: Lorazepam 2 MG/ML VIAL SLOW IVP PRN (17:24)
[2020-02-23] MEDS: Mometasone 200 MCG/Formoterol 5 MCG 120 PUFF INHALER INH SCH (18:29)
[2020-02-23 19:13] LABS: Troponin I 0.045 ng/mL (< 0.028)
[2020-02-23] MEDS: Famotidine/PF 20 mg/2ml Vial SLOW IVP SCH (20:04)
[2020-02-23] MEDS: Dextrose 5 % And 0.9 % NaCl 1,000 ML IV SCH (20:04)
[2020-02-23] MEDS: Atorvastatin Calcium 20 MG TAB PO SCH (20:04)
[2020-02-23] MEDS: Insulin Regular 300 UNITS/3 ML VIAL SC PRN (23:52)
[2020-02-24] MEDS: Insulin Regular 300 UNITS/3 ML VIAL SC PRN ×3 (04:17→21:14)
[2020-02-24 04:53] LABS: Anion Gap 18 mmol/L (10-20); BUN (Urea Nitrogen) 77 mg/dL (9.8-20.1); Calc. Creatinine Clearance 18 mL/min (70-130); Calcium 8.1 mg/dL (7.8-10.44); Carbon Dioxide 13 mmol/L (23-31); Chloride 108 mmol/L (98-107); Estimated GFR-MDRD 12; Glucose 285 mg/dL (83-110); Potassium 5.1 mmol/L (3.5-5.1); Sodium 134 mmol/L (136-145)
[2020-02-24 05:09] LABS: Hemoglobin 10.8 g/dL (12.0-16.0); Mean Corpuscular HGB CONC 31.7 g/dL (32.0-36.0); Mean Corpuscular Hemoglobin 29.6 pg (27.0-31.0); Mean Corpuscular Volume 93.2 fL (78.0-98.0); Mean Platelet Volume 10.5 fL (7.4-10.4); Platelet Count 209 thou/uL (130-400); RBC Distribution Width 16.4 % (11.5-14.5); Red Blood Cell (RBC) Count 3.65 mill/uL (4.20-5.40); White Blood Cell (WBC) Count 18.2 thou/uL (4.8-10.8)
[2020-02-24 05:10] LABS: Band 30 % (5-11); MDiff Complete? YES; Monocytes 1 % (0-10); Neutrophil 69 % (42-75); Toxic Granulation SLIGHT; Vacuoles SLIGHT
[2020-02-24] MEDS: methylPREDNISolone Sod Succ 40 MG VIAL IVP SCH ×3 (05:57→17:30)
--- NOTE | 2020-02-24 07:51 | CON ---
DATE OF CONSULTATION: HISTORY OF PRESENT ILLNESS: Jonna León is an 84-year-old morbidly obese, female who sees Dr. Vazquez in office. Came to the ER with progressive shortness of breath, confusion. Apparently, low-grade fever. In the process of trying to get additional information, she got more confused. Blood gases performed, which showed pO2 was 66, pCO2 of 40%, 28, this was on 2 L. She became more confused, was not going to leave her BiPAP on. She was intubated by the ER physician. X-ray did show worsening bilateral pulmonary infiltrates. She has a coronavirus test pending. PAST MEDICAL HISTORY: Pertinent for diabetes, COPD, obesity, chronic O2 at home. PREVIOUS SURGERIES: Gallbladder, hysterectomy, knee, colonoscopy. SOCIAL HISTORY: She was here in the ER in August 2019 after she had a fall. Denied any tobacco or alcohol use at that time. ALLERGIES: NONE. HOME MEDICATIONS: At this time include: 1. Colchicine 0.6. 2. Allopurinol 300. 3. . 4. Lasix 20. 5. Spiriva inhaler. 6. VESIcare 10. 7. Simvastatin 40. 8. Protonix 40. 9. Nebulizer. 10. Amaryl. 11. Plavix 75. 12. Symbicort. 13. Aspirin. PHYSICAL EXAMINATION: VITAL SIGNS: Post intubation, sedated; pulse 90, respirations 20, blood pressure is . CHEST: Decreased breath sounds. Rhonchi. CARDIAC: Normal S1 and S2. No gallops. ABDOMEN: No masses. LABORATORY DATA: White count 20,000, H and H of 13 and 41, platelet count is 238, big left shift, 41 segs, 41 bands. PO2 prior to intubation 66 on room air on 2 L, pCO2 of 40%, 28. Creatinine 3.9, BUN is 72. She has some component of prerenal on top for underlying chronic renal problem. ASSESSMENT AND PLAN: 1. Dztjy-jn-fanzzbg respiratory failure with superimposed pneumonia, rule out virus lopez. 2. Renal failure. 3. Morbid obesity. 4. Hypertension. I agree with present treatment. If the virus test is negative, she needs scheduled neb treatments, steroids, broad-spectrum antibiotics, Maxipime, doxycycline. Proton pump inhibitors, DVT prophylaxis, sedation protocol on board. This is 45 minutes critical care time. I will notify Dr. Vazquez in the morning. Job ID: [id number]
[2020-02-24 08:07] LABS: Actual Bicarbonate (HCO3a) 15.2 mEq/L (22-28); Analyzer IN Cardio OR; CO2 Tension 34.9 mmHg (35.0-45.0); Calcium, Ionized (arterial) 1.12 mmol/L (1.12-1.30); Hemoglobin (Hb) 13.4 g/dL (12.0-16.0); O2 Tension (PaO2), arterial 67.9 mmHg (> 60.0); Potassium - ABG Lab 5.04 mmol/L (3.70-5.30); pH, Arterial 7.26 (7.35-7.45)
[2020-02-24] MEDS: Mometasone 200 MCG/Formoterol 5 MCG 120 PUFF INHALER INH SCH ×2 (08:08→18:21)
[2020-02-24 08:22] LABS: Puncture Site RRA
[2020-02-24 08:23] LABS: ALV-art Gradient 316.275 (0-20)
[2020-02-24] MEDS: fentaNYL Citrate/PF 2,000 MCG in Sodium Chloride 0.9% 60 ML IV SCH (08:30)
[2020-02-24] MEDS: Sodium Bicarbonate 150 MEQ in Dextrose 5% in Water 1,000 ML IV SCH (08:30)
[2020-02-24] MEDS: Clopidogrel Bisulfate 75 MG TAB PO SCH (08:32)
[2020-02-24] MEDS: Saccharomyces boulardii 250 MG CAP PO SCH (08:32)
[2020-02-24] MEDS: Aspirin Chewable 81 MG TAB PO SCH (08:32)
[2020-02-24] MEDS: Heparin 5,000 UNITS/ML VIAL SC SCH ×3 (08:33→21:15)
[2020-02-24] MEDS: Famotidine/PF 20 mg/2ml Vial SLOW IVP SCH (08:33)
[2020-02-24] MEDS: Lorazepam 2 MG/ML VIAL SLOW IVP PRN ×3 (10:46→22:25)
--- NOTE | 2020-02-24 11:38 | RAD ---
PORTABLE CHEST: HISTORY: Respiratory distress. COMPARISON: Prior day's exam. FINDINGS: Endotracheal and NG tubes are in satisfactory position. The pneumonic lung changes in the bases appe ar essentially stable as compared to the prior exam. Perhaps some slight worsening to the left perih ilar lung changes. IMPRESSION: Fairly stable study. There may be slight increase to the left perihilar lung markings. POS: [facility]
[2020-02-24 13:33] LABS: SARS-CoV-2 MS2 Positive; SARS-CoV-2 N Gene Negative; SARS-CoV-2 S Gene Negative; SARS-CoV-2 orf1ab Negative
[2020-02-24] MEDS: Cefepime 1 GM in Sodium Chloride 0.9% 100 ML IVPB SCH (14:05)
[2020-02-24] MEDS: Dextrose 5 % And 0.9 % NaCl 1,000 ML IV SCH (14:06)
[2020-02-24] MEDS: Ventilator Sedation Protocol 1 EACH FS SCH (14:06)
--- NOTE | 2020-02-24 19:36 | PDOC.HOSPP ---
- Subjective Encounter Date: 02/24/20 Encounter Time: 19:34 Subjective: Ms. León was seen today in follow-up of COPD exacerbation and respiratory failure. She is intubated and sedated. No problems voiced by staff. - Objective Vital Signs & Weight: Vital Signs (12 hours) Temp Pulse Resp BP Pulse Ox 02/24/20 19:00 97.8 F 02/24/20 18:23 95 99/62 02/24/20 18:22 96 20 96 02/24/20 18:21 96 20 95 02/24/20 18:00 20 02/24/20 16:00 98.6 F 20 02/24/20 14:34 93 02/24/20 14:00 20 02/24/20 12:00 98.7 F 02/24/20 11:40 92 02/24/20 10:00 20 02/24/20 08:09 94 02/24/20 08:00 97.8 F 20 Weight Admit Weight 209 lb Weight 210 lb 15.718 oz Most Recent Monitor Data Heart Rate from ECG 100 NIBP 91/57 NIBP BP-Mean 68 Respiration from ECG 20 SpO2 96 I&O: 02/23/20 02/24/20 02/25/20 06:59 06:59 06:59 Intake Total 703 925 Output Total 405 445 Balance 298 480 Result Diagrams: 02/24/20 04:09 02/24/20 04:09 Additional Labs: Accuchecks 02/24/20 02/24/20 02/24/20 16:05 10:14 04:21 POC Glucose 249 H 242 H 254 H 02/23/20 23:54 POC Glucose 295 H Hospitalist ROS - Medication Medications: Active Medications Generic Name Dose Route Start Last Admin Trade Name Freq PRN Reason Stop Dose Admin Albuterol/Ipratropium 3 ml 02/23/20 19:00 02/24/20 18:22 Duoneb NEB 3 ml [id number] SARA Administration Aspirin 81 mg 02/24/20 09:00 02/24/20 08:32 Aspirin Chewable PO 81 mg DAILY SARA Administration Atorvastatin Calcium 20 mg 02/23/20 21:00 02/23/20 20:04 Lipitor PO 20 mg HS SARA Administration Clopidogrel Bisulfate 75 mg 02/24/20 09:00 02/24/20 08:32 Plavix PO 75 mg DAILY SARA Administration Heparin Sodium (Porcine) 5,000 units 02/23/20 15:00 02/24/20 14:44 Heparin SC 5,000 units TID SARA Administration Fentanyl Citrate 2,000 mcg/ 100 mls @ 0 mls/hr 02/23/20 13:03 02/24/20 08:30 Sodium Chloride IV 03/24/20 13:03 100 mls INF SARA Administration Protocol Per Protocol Cefepime HCl 1 gm/ Sodium 100 mls @ 200 mls/hr 02/23/20 14:00 02/24/20 14:05 Chloride IVPB 100 mls Q24H SARA Administration Doxycycline Hyclate 100 mg/ 100 mls @ 100 mls/hr 02/23/20 14:00 02/24/20 14: 08 Sodium Chloride IVPB 100 mls 0200,1400 SARA Administration Dextrose/Sodium Chloride 1,000 mls @ 30 mls/hr 02/23/20 13:45 02/24/20 14:06 D5 0.9% Ns IV Not Given .Q24H SARA Sodium Bicarbonate 150 meq/ 1,150 mls @ 60 mls/hr 02/24/20 07:45 02/24/20 08: 30 Dextrose/Water IV 1,150 mls .[id number] SARA Administration Insulin Human Regular 0 units 02/23/20 13:35 02/24/20 16:04 Humulin R SC 3 unit .MILD SLIDING SCALE PRN Administration Mild Correctional Scale Lorazepam 2 mg 02/23/20 13:55 02/24/20 12:53 Ativan SLOW IVP 03/24/20 13:55 2 mg Q1H PRN Administration Breakthrough agitation Methylprednisolone Sodium Succinate 40 mg 02/23/20 18:00 02/24/20 17:30 Solu-Medrol IVP 40 mg Q6HR SARA Administration Miscellaneous Medication 1 each 02/23/20 14:00 02/24/20 14:06 Ventilator Sedation Protocol FS 1 each 1400 SARA Administration Mometasone Furoate/Formoterol Fumar 2 puff 02/23/20 18:30 02/24/20 18:21 Dulera 200 Mcg/5 Mcg Inhaler INH 2 puff BID-RT SARA Administration Saccharomyces Boulardii 250 mg 02/24/20 09:00 02/24/20 08:32 Florastor PO 250 mg DAILY SARA Administration - Exam Eye: PERRL, anicteric sclera Heart: RRR, no murmur, no gallops, no rubs, normal peripheral pulses Respiratory: CTAB (+ coarse breath sounds bilaterally), no wheezes, no ronchi Gastrointestinal: soft, non-tender, non-distended, normal bowel sounds, no palpable masses Extremities: no cyanosis, no clubbing, no edema Hosp A/P (1) Acute and chronic respiratory failure with hypoxia Code(s): J96.21 - ACUTE AND CHRONIC RESPIRATORY FAILURE WITH HYPOXIA Status: Acute (2) COPD exacerbation Code(s): J44.1 - CHRONIC OBSTRUCTIVE PULMONARY DISEASE W (ACUTE) EXACERBATION Status: Acute (3) Hypertension Code(s): I10 - ESSENTIAL (PRIMARY) HYPERTENSION Status: Chronic (4) Diabetes mellitus type 2 in obese Code(s): E11.69 - TYPE 2 DIABETES MELLITUS WITH OTHER SPECIFIED COMPLICATION; E66.9 - OBESITY, UNSPECIFIED Status: Chronic (5) CAD (coronary artery disease) Code(s): I25.10 - ATHSCL HEART DISEASE OF [place] CORONARY ARTERY W/O ANG PCTRS Status: Chronic (6) Chronic kidney disease, stage 4 (severe) Code(s): N18.4 - CHRONIC KIDNEY DISEASE, STAGE 4 (SEVERE) Status: Acute - Plan * Acute on chronic respiratory failure due to COPD exacerbation- continue Nebs, steroids and empiric antibiotics * Ventilator management as per PCCM * DM- blood glucose is elevated- will add a low dose Long acting insulin while intubated * HTN- she is now off pressor support * CAD- stable- Echo pending * COVID screen was negative * DVT and GI Prophylaxis * Nutritional support with tube feeding
[2020-02-24] MEDS: Insulin Glargine 8 UNITS in Pre-Filled Syringe 1 EACH SC SCH (21:16)
[2020-02-24] MEDS: Atorvastatin Calcium 20 MG TAB PO SCH (21:17)
[2020-02-25] MEDS: methylPREDNISolone Sod Succ 40 MG VIAL IVP SCH ×5 (00:12→23:52)
--- NOTE | 2020-02-25 01:51 | CON ---
DATE OF CONSULTATION: 02/25/2020 HISTORY OF PRESENT ILLNESS: Jonna León is an 84-year-old female, who presented to the emergency room yesterday around noon. She required intubation. She had COPD and is on home oxygen. She reported being short of breath for over a day. She is afebrile on presentation. She was placed in COVID isolation. PAST MEDICAL HISTORY: 1. Remarkable for diabetes. 2. Coronary artery disease. 3. Hypertension. 4. Chronic kidney disease. 5. History of ulcer disease. 6. History of heart failure. 7. History of diverticulosis. 8. History of cardiac catheterization. 9. Status post hysterectomy. 10. History of knee replacement. 11. History of cholecystectomy in 2018. 12. History of colon polyps resected in 2012. 13. History of heart failure admission in 2013. 14. History of systolic cardiomyopathy going back many years. Back in 2013, her ejection fraction was 30% with moderate-to- severe mitral regurgitation. 15. History of Ear, Nose and Throat surgery with Dr. 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 16. In 2011, PFTs showed an FEV1 of 920 mL that did not improve with bronchodilator significantly. FAMILY HISTORY: Negative for lung disease in early age. PHYSICAL EXAMINATION: GENERAL: She is in no distress. She still has a long expiratory time. She is intubated. She has 7.5 tube in. She is afebrile. Blood pressure is in the high 90s. Respiratory rates in the 20s, FiO2 is at 50%. LUNGS: Distant and equal breath sounds. HEART: Regular rhythm S1, S2 are normal. ABDOMEN: Soft and nontender. EXTREMITIES: Without clubbing, cyanosis, or edema. IMPRESSION: Chronic obstructive pulmonary disease exacerbation with respiratory failure. COVID screen was negative. Blood gas today showed a pH of 7.26, CO2 34, pO2 of 67, which is not what I would expect with just pure chronic obstructive pulmonary disease. It maybe her metabolic acidosis associated with a renal failure, led to an increased work of breathing to compensate for low pH. With her underlying chronic obstructive pulmonary disease, there is no way she could easily become tachypneic without getting worn out. There definitely needs to be an input from a neurologist while she is in the ICU. CRITICAL CARE TIME: 30 minutes. Job ID: [id number] [facility]
[2020-02-25] MEDS: fentaNYL Citrate/PF 2,000 MCG in Sodium Chloride 0.9% 60 ML IV SCH (02:36)
[2020-02-25] MEDS: Sodium Bicarbonate 150 MEQ in Dextrose 5% in Water 1,000 ML IV SCH ×2 (03:33→22:09)
[2020-02-25] MEDS: Lorazepam 2 MG/ML VIAL SLOW IVP PRN (03:49)
[2020-02-25 04:31] LABS: Anion Gap 20 mmol/L (10-20); BUN (Urea Nitrogen) 99 mg/dL (9.8-20.1); Calc. Creatinine Clearance 18 mL/min (70-130); Calcium 8.3 mg/dL (7.8-10.44); Carbon Dioxide 15 mmol/L (23-31); Chloride 105 mmol/L (98-107); Estimated GFR-MDRD 12; Glucose 243 mg/dL (83-110); Potassium 4.9 mmol/L (3.5-5.1); Sodium 135 mmol/L (136-145)
[2020-02-25] MEDS: Insulin Regular 300 UNITS/3 ML VIAL SC PRN ×4 (05:06→22:09)
[2020-02-25 05:20] LABS: Band 13 % (5-11); Hemoglobin 10.5 g/dL (12.0-16.0); Lymphocytes 6 % (21-51); MDiff Complete? YES; Mean Corpuscular HGB CONC 31.1 g/dL (32.0-36.0); Mean Platelet Volume 10.7 fL (7.4-10.4); Monocytes 3 % (0-10); Neutrophil 78 % (42-75); Platelet Count 210 thou/uL (130-400); RBC Distribution Width 16.5 % (11.5-14.5); Red Blood Cell (RBC) Count 3.64 mill/uL (4.20-5.40); White Blood Cell (WBC) Count 14.9 thou/uL (4.8-10.8)
[2020-02-25] MEDS ORDERED: Pancrelipase DR 12000 1 CAP FS PRN (06:13)
[2020-02-25] MEDS ORDERED: Sodium Bicarbonate Tab 325 MG TAB PER TUBE PRN (06:13)
[2020-02-25 06:54] LABS: Calcium, Ionized (arterial) 1.09 mmol/L (1.12-1.30); Carboxyhemoglobin (COHb) 0.5 gm% (0.0-3.0); Hemoglobin (Hb) 10.7 g/dL (12.0-16.0); O2 Tension (PaO2), arterial 67.1 mmHg (> 60.0); Potassium - ABG Lab 4.47 mmol/L (3.70-5.30); pH, Arterial 7.33 (7.35-7.45)
[2020-02-25 06:58] LABS: Puncture Site RRA
[2020-02-25] MEDS: Mometasone 200 MCG/Formoterol 5 MCG 120 PUFF INHALER INH SCH ×2 (06:58→18:38)
--- NOTE | 2020-02-25 07:55 | RAD ---
CHEST 1 VIEW: INDICATION: Intubation. COMPARISON: Prior exam dated 02/24/2020. IMPRESSION: Bilateral airspace disease, cardiomegaly, ET tube, and gastric catheter appear unchanged. No pneumot horax is evident. POS: BH
[2020-02-25] MEDS: Saccharomyces boulardii 250 MG CAP PO SCH (08:31)
[2020-02-25] MEDS: Clopidogrel Bisulfate 75 MG TAB PO SCH (08:31)
[2020-02-25] MEDS: Aspirin Chewable 81 MG TAB PO SCH (08:31)
[2020-02-25] MEDS: Insulin Glargine 8 UNITS in Pre-Filled Syringe 1 EACH SC SCH ×2 (08:32→22:08)
[2020-02-25] MEDS: Heparin 5,000 UNITS/ML VIAL SC SCH ×3 (08:32→22:08)
[2020-02-25] MEDS ORDERED: Famotidine/PF 20 mg/2ml Vial SLOW IVP SCH (09:00)
[2020-02-25] MEDS ORDERED: Insulin Glargine 8 UNITS in Pre-Filled Syringe 1 EACH SC SCH (09:00)
--- NOTE | 2020-02-25 11:26 | PDOC.HOSPP ---
- Subjective Encounter Date: 02/25/20 Encounter Time: 11:24 Subjective: Ms. León was seen today in follow-up of respiratory failure. She is intubated and sedated. No problems voiced by staff. - Objective Vital Signs & Weight: Vital Signs (12 hours) Temp Pulse Resp BP Pulse Ox 02/25/20 10:42 93 103/72 02/25/20 10:00 20 02/25/20 08:00 20 02/25/20 07:07 99 02/25/20 07:01 90 101/63 02/25/20 07:00 97.8 F 02/25/20 06:00 20 02/25/20 04:00 97.8 F 20 02/25/20 02:40 94 94/55 L 02/25/20 02:00 20 02/25/20 00:07 92 90/56 L 02/25/20 00:06 92 20 95 02/25/20 00:00 97.6 F 20 Weight Admit Weight 209 lb Weight 218 lb 0.595 oz Most Recent Monitor Data Heart Rate from ECG 92 NIBP 102/61 NIBP BP-Mean 74 Respiration from ECG 16 SpO2 100 I&O: 02/24/20 02/25/20 02/26/20 06:59 06:59 06:59 Intake Total 703 1881 0 Output Total 405 705 160 Balance 298 1176 -160 Result Diagrams: 02/25/20 03:10 02/25/20 03:10 Additional Labs: Accuchecks 02/25/20 02/24/20 02/24/20 09:53 21:17 16:05 POC Glucose 273 H 250 H 249 H 02/24/20 10:14 POC Glucose 242 H Hospitalist ROS - Medication Medications: Active Medications Generic Name Dose Route Start Last Admin Trade Name Freq PRN Reason Stop Dose Admin Albuterol/Ipratropium 3 ml 02/23/20 19:00 02/25/20 06:59 Duoneb NEB 3 ml [id number] SARA Administration Aspirin 81 mg 02/24/20 09:00 02/25/20 08:31 Aspirin Chewable PO 81 mg DAILY SARA Administration Atorvastatin Calcium 20 mg 02/23/20 21:00 02/24/20 21:17 Lipitor PO 20 mg HS SARA Administration Clopidogrel Bisulfate 75 mg 02/24/20 09:00 02/25/20 08:31 Plavix PO 75 mg DAILY SARA Administration Heparin Sodium (Porcine) 5,000 units 02/23/20 15:00 02/25/20 08:32 Heparin SC 5,000 units TID SARA Administration Fentanyl Citrate 2,000 mcg/ 100 mls @ 0 mls/hr 02/23/20 13:03 02/25/20 02:36 Sodium Chloride IV 03/24/20 13:03 100 mls INF SARA Administration Protocol Per Protocol Cefepime HCl 1 gm/ Sodium 100 mls @ 200 mls/hr 02/23/20 14:00 02/24/20 14:05 Chloride IVPB 100 mls Q24H SARA Administration Doxycycline Hyclate 100 mg/ 100 mls @ 100 mls/hr 02/23/20 14:00 02/25/20 01: 40 Sodium Chloride IVPB 100 mls 0200,1400 SARA Administration Dextrose/Sodium Chloride 1,000 mls @ 30 mls/hr 02/23/20 13:45 02/24/20 14:06 D5 0.9% Ns IV Not Given .Q24H SARA Sodium Bicarbonate 150 meq/ 1,150 mls @ 60 mls/hr 02/24/20 07:45 02/25/20 03: 33 Dextrose/Water IV 1,150 mls .[id number] SARA Administration Insulin Glargine 8 units/ 0.08 mls @ 0 mls/hr 02/24/20 21:00 02/25/20 08:32 Miscellaneous Medication SC 0.08 mls BID SARA Administration Insulin Human Regular 0 units 02/23/20 13:35 02/25/20 09:53 Humulin R SC 4 unit .MILD SLIDING SCALE PRN Administration Mild Correctional Scale Lorazepam 2 mg 02/23/20 13:55 02/25/20 03:49 Ativan SLOW IVP 03/24/20 13:55 2 mg Q1H PRN Administration Breakthrough agitation Methylprednisolone Sodium Succinate 40 mg 02/23/20 18:00 02/25/20 06:39 Solu-Medrol IVP 40 mg Q6HR SARA Administration Miscellaneous Medication 1 each 02/23/20 14:00 02/24/20 14:06 Ventilator Sedation Protocol FS 1 each 1400 SARA Administration Mometasone Furoate/Formoterol Fumar 2 puff 02/23/20 18:30 02/25/20 06:58 Dulera 200 Mcg/5 Mcg Inhaler INH 2 puff BID-RT SARA Administration Saccharomyces Angeloi 250 mg 02/24/20 09:00 02/25/20 08:31 Florastor PO 250 mg DAILY SARA Administration - Exam Eye: PERRL Heart: RRR, no murmur, no gallops, no rubs, normal peripheral pulses Respiratory: no wheezes, no ronchi, rales (at the bases and decreased breath sounds) Gastrointestinal: soft, non-distended, normal bowel sounds Extremities: no cyanosis, no clubbing, no edema Hosp A/P (1) Acute and chronic respiratory failure with hypoxia Code(s): J96.21 - ACUTE AND CHRONIC RESPIRATORY FAILURE WITH HYPOXIA Status: Acute (2) COPD exacerbation Code(s): J44.1 - CHRONIC OBSTRUCTIVE PULMONARY DISEASE W (ACUTE) EXACERBATION Status: Acute (3) Hypertension Code(s): I10 - ESSENTIAL (PRIMARY) HYPERTENSION Status: Chronic (4) Diabetes mellitus type 2 in obese Code(s): E11.69 - TYPE 2 DIABETES MELLITUS WITH OTHER SPECIFIED COMPLICATION; E66.9 - OBESITY, UNSPECIFIED Status: Chronic (5) CAD (coronary artery disease) Code(s): I25.10 - ATHSCL HEART DISEASE OF [place] CORONARY ARTERY W/O ANG PCTRS Status: Chronic (6) Chronic kidney disease, stage 4 (severe) Code(s): N18.4 - CHRONIC KIDNEY DISEASE, STAGE 4 (SEVERE) Status: Acute - Plan * Acute on chronic respiratory failure due to COPD exacerbation- continue Nebs, steroids and empiric antibiotics * Ventilator management as per PCCM * Acute on chronic kidney injury, with severe metabolic acidosis- she was placed on a Bicarb drip yesterday, and will consult Nephrology today * Her code status has been changed to DNR * DM- blood glucose is still elevated- will continue to titrate insulin * HTN- is stable * CAD- stable- Echo pending * COVID screen was negative * DVT and GI Prophylaxis * Nutritional support with tube feeding * Await addition guidance from the family
[2020-02-25] MEDS: Dextrose 5 % And 0.9 % NaCl 1,000 ML IV SCH (11:49)
[2020-02-25] MEDS: Ventilator Sedation Protocol 1 EACH FS SCH (11:50)
--- NOTE | 2020-02-25 11:54 | PDOC.PALCO ---
Palliative Care Consult - Consult Details Requesting Physician: Dr Cotter Reason for Consult: goals of care, advance directives assistance, family support Family Members Present: Sister Rosemarie - Pertinent HPI 84 year old female who lives in a private home setting with her sister as her primary caregiver. Sister reports continued recent decline, O2 use via nasal cannula in the home setting, assistance with ADL. Sister reports patient had change in condition Tuesday 02/20 but did not desire to seek medical attention. Shortness of breath increased as well as weakness, no relieving factors/ interventions. Sister also reports increase in time spent in bed over the weekend and decrease in appetite. EMS was called and patient was seen and evaluated in the emergency room. In the ER she was intubated and placed on mechanical ventilation to maintain airway and admitted to CCU for higher level of care and medical management. - Pertinent PMH COPD (O2 in home setting), CAD, DM II, HTN, CKD 4, CHF - Social History Smoking Status: Former smoker Smoking: quit greater than 1 year Alcohol Use: none Drug Use History: none Living Situation: independent, with caregiver - Medications MAR Reviewed: Yes - Allergies Allergies/Adverse Reactions: Allergies Allergy/AdvReac Type Severity Reaction Status Date / Time No Known Drug Allergies Allergy Verified 02/23/20 12:55 - Subjective Mechanical ventilation, sedated - ROS Non Response: due to endotracheal tube, due to mental status - Objective Vital Signs: Vital Signs - Most Recent Temp Pulse Resp BP Pulse Ox 97.8 F 93 20 103/72 99 02/25/20 07:00 02/25/20 10:42 02/25/20 10:00 02/25/20 10:42 02/25/20 07:07 Palliative Performance Scale: 20 - Physical Exam Constitutional: ill appearing HEENT: moist MMs, sclera anicteric Respiratory: no wheezing, diminished lung sound Deviation from normal: Mechanical ventilation Cardiovascular: RRR Gastrointestinal: soft, non-tender, positive bowel sounds Genitourinary: seals catheter Musculoskeletal: pulses present Deviation from normal: sedated Skin: cap refill <2 seconds, no lesions, no rash Deviation from normal: sedated - Problem List (1) Acute and chronic respiratory failure with hypoxia Code(s): J96.21 - ACUTE AND CHRONIC RESPIRATORY FAILURE WITH HYPOXIA Current Visit: Yes Status: Acute (2) COPD exacerbation Code(s): J44.1 - CHRONIC OBSTRUCTIVE PULMONARY DISEASE W (ACUTE) EXACERBATION Current Visit: Yes Status: Acute (3) Chronic kidney disease, stage 4 (severe) Code(s): N18.4 - CHRONIC KIDNEY DISEASE, STAGE 4 (SEVERE) Current Visit: Yes Status: Acute (4) Acute on chronic systolic CHF (congestive heart failure) Code(s): I50.23 - ACUTE ON CHRONIC SYSTOLIC (CONGESTIVE) HEART FAILURE Current Visit: No Status: Acute - Plan/Recommendations Plan: Life review with patient sister. Sister reports that Ms León has two children she has raised, not biological or officially adopted. Currently lives in an independent home setting with Rosemarie as her primary caregiver, assistance with ADL, increase in O2 use and uses a cane for ambulation. She states she is MPOA, and sibling majority confirm. Please refer to Palliative Care notes in note section. Sister states that she would like to transition Ms León to a DNAR, as this would be her wishes. She also relayed that she would not desire dialysis, trach/ peg. [facility] assisted with MPOA. Emotional support and therapeutic listening. [55] minutes spent on this encounter with >50% of the time in counseling and coordination of care. Thank you for this very appropriate consult.
--- NOTE | 2020-02-25 13:06 | PRG ---
DATE OF SERVICE: 02/25/2020 SUBJECTIVE: Ms. León remains mechanically ventilated. OBJECTIVE: VITAL SIGNS: She is afebrile, respiratory rate is 20, heart rate is 50, blood pressure is 95/57. LUNGS: Distant, clear. HEART: Regular rhythm. ABDOMEN: Soft. time is at its baseline. LABORATORY DATA: White count 14.9, hemoglobin 10.5, and platelets 210. Sodium 135, potassium 4.9, chloride 105, bicarb 15, BUN 99, and creatinine 3.72. PH is 7.33, CO2 of 33, pO2 of 67. Intake and output are positive 1176. IMPRESSION: 1. Respiratory failure. 2. Underlying chronic obstructive pulmonary disease. 3. Renal failure. 4. Metabolic acidosis, most likely secondary to renal failure. PLAN: Continue supportive care. At this point in time with her acid-base disorder, she is not weanable from mechanical ventilation. Microbiology has been reviewed. All cultures are negative. Consider simplifying antibiotics in the morning. CRITICAL CARE TIME: 30 minutes. Job ID: [id number]
[2020-02-25] MEDS: Cefepime 1 GM in Sodium Chloride 0.9% 100 ML IVPB SCH (13:34)
--- NOTE | 2020-02-25 21:38 | PQF ---
CLINICAL DOCUMENTATION IMPROVEMENT CLARIFICATION FORM: ICD-10 Updated PLEASE DO AN ADDENDUM TO THE PROGRESS NOTE WITH ANY DOCUMENTATION UPDATES OR ADDITIONS AND CARRY THROUGH TO DC SUMMARY. THANK YOU. DATE: 02/25/20 ATTN: DR. ADRIAN Please exercise your independent, professional judgment in responding to the clarification form. Clinical indicators are provided on the bottom of this form for your review Please check appropriate box(s) to clarify if the following diagnosis has been ruled in or ruled out: "SEPSIS" [ X] Ruled in diagnosis [ X ] Continue to treat [ ] Resolved [ ] Ruled out diagnosis [ ] Improving [ ] Cannot rule out diagnosis [ ] Other diagnosis [ ] Unable to determine In addition, please specify: Present on Admission (POA): [ X ] Yes [ ] No [ ] Unable to determine For continuity of documentation, please document condition throughout progress notes and discharge summary. Thank You. CLINICAL INDICATORS - SIGNS / SYMPTOMS / LABS / RESULTS AND LOCATION IN ER NOTE: PULSE 131 RR 32 BP 77/45 WBC 02/22: 23.1 BANDS 02/22: 41 H&P: "SEVERE SEPSIS" 02/22-PRESENT) COPD EXACERBATION (H&P) RESPIRATORY FAILURE (H&P) COPD EXACERBATION (H&P) TREATMENT: IV FLUIDS (ER) IV AZITHROMYCIN (ER) IV ROCEPHIN (ER) IV VIBRAMYCIN (02/22-PRESENT) MECHANICAL VENT (02/22 @ 1325) CRITICAL CARE MONITORING BLOOD CULTURES 02/22 (This form is maintained as a part of the permanent medical record) 2014 [employer]. All Rights Reserved [email or web address]
[2020-02-25] MEDS: Atorvastatin Calcium 20 MG TAB PO SCH (22:08)
[2020-02-26] MEDS ORDERED: Metoprolol Tartrate 5 MG/5 ML VIAL IVP PRN (02:16)
[2020-02-26] MEDS ORDERED: Sodium Chloride 0.9% 500 ML IVPB SCH (02:30)
[2020-02-26] MEDS: Insulin Regular 300 UNITS/3 ML VIAL SC PRN ×4 (04:04→21:07)
[2020-02-26 04:22] LABS: Anion Gap 21 mmol/L (10-20); BUN (Urea Nitrogen) 118 mg/dL (9.8-20.1); Calc. Creatinine Clearance 19 mL/min (70-130); Calcium 8.6 mg/dL (7.8-10.44); Carbon Dioxide 16 mmol/L (23-31); Chloride 102 mmol/L (98-107); Estimated GFR-MDRD 12; Glucose 261 mg/dL (83-110); Potassium 4.6 mmol/L (3.5-5.1); Sodium 134 mmol/L (136-145)
[2020-02-26] MEDS ORDERED: Digoxin 0.5 MG/2 ML AMP SLOW IVP SCH (04:30)
[2020-02-26 04:31] LABS: Band 8 % (5-11); Hemoglobin 11.4 g/dL (12.0-16.0); Lymphocytes 3 % (21-51); MDiff Complete? YES; Mean Corpuscular HGB CONC 32.2 g/dL (32.0-36.0); Mean Corpuscular Hemoglobin 29.2 pg (27.0-31.0); Mean Corpuscular Volume 90.5 fL (78.0-98.0); Mean Platelet Volume 11.2 fL (7.4-10.4); Metamyelocyte 1 % (0-0); Monocytes 2 % (0-10); Myelocyte 3 % (0-0); Neutrophil 83 % (42-75); Nucleated RBC 2 % (0); Platelet Count 230 thou/uL (130-400); RBC Distribution Width 16.5 % (11.5-14.5); Red Blood Cell (RBC) Count 3.91 mill/uL (4.20-5.40); White Blood Cell (WBC) Count 14.9 thou/uL (4.8-10.8)
[2020-02-26] MEDS: fentaNYL Citrate/PF 2,000 MCG in Sodium Chloride 0.9% 60 ML IV SCH ×2 (04:47→22:48)
[2020-02-26] MEDS: methylPREDNISolone Sod Succ 40 MG VIAL IVP SCH ×3 (05:01→17:36)
--- NOTE | 2020-02-26 06:47 | CON ---
DATE OF CONSULTATION: 02/25/2020 CONSULTING PHYSICIAN: Rayshawn Cotter MD REASON FOR CONSULTATION: Acute kidney injury. REASON FOR ADMISSION: Shortness of breath. HISTORY OF PRESENT ILLNESS: This is an 84-year-old female with history of COPD, coronary artery disease, and CKD, came to the hospital with shortness of breath and has been evaluated. She has been treating for sepsis and respiratory failure. She was found an elevated creatinine and acidosis, Nephrology is consulted. The patient is on bicarb drip. Now, the patient is intubated and family made a DNR today. They do not wish to be aggressive with renal replacement therapy and does not wish to be on dialysis. PAST MEDICAL HISTORY: Positive COPD, coronary artery disease, type 2 diabetes, hypertension, CKD, hernia, and congestive heart failure. PAST SURGICAL HISTORY: Hysterectomy, cardiac cath, and left knee replacement. ALLERGIES: NO KNOWN DRUG ALLERGIES. HOME MEDICATIONS: Reviewed. SOCIAL HISTORY: No smoking, alcohol, or illicit drugs. FAMILY HISTORY: Positive for heart disease. REVIEW OF SYSTEMS: Could not be obtained as intubated. PHYSICAL EXAMINATION: GENERAL: This is an elderly female and intubated. VITAL SIGNS: Temperature 98.5, pulse 91, respiratory rate blood pressure 119/73. HEENT: Intubated. CV: S1 and S2 heard. RESPIRATORY: Clear. GASTROINTESTINAL: Abdomen is soft. MUSCULOSKELETAL: No edema. DERMATOLOGIC: No skin rash. NEUROLOGIC: Intubated. LABORATORY DATA: Potassium is 4.9, BUN is 99, creatinine is 3.7, and bicarb is 15. ASSESSMENT AND PLAN: 1. Acute kidney injury.Renal function seems to be stable. 2. Sepsis. Continue supportive care. 3. Acute hypoxic respiratory failure. 4. Metabolic acidosis. Continue bicarb drip. 5. Type 2 diabetes. 6. Hyponatremia. 7. Anemia of chronic disease. 8. Leukocytosis. 9. Continue bicarb drip and we will monitor renal function. Job ID: [id number]
[2020-02-26] MEDS: Mometasone 200 MCG/Formoterol 5 MCG 120 PUFF INHALER INH SCH ×2 (07:27→18:34)
[2020-02-26 07:41] LABS: Actual Bicarbonate (HCO3a) 17.3 mEq/L (22-28); Base Excess (BEa) -6.6 mEq/L (-2.0 to +3.0); CO2 Tension 29.9 mmHg (35.0-45.0); Calcium, Ionized (arterial) 1.11 mmol/L (1.12-1.30); Carboxyhemoglobin (COHb) 0.6 gm% (0.0-3.0); Hemoglobin (Hb) 13.2 g/dL (12.0-16.0); O2 Tension (PaO2), arterial 69.3 mmHg (> 60.0); Potassium - ABG Lab 4.43 mmol/L (3.70-5.30); pH, Arterial 7.38 (7.35-7.45)
[2020-02-26 07:44] LABS: ALV-art Gradient 178.525 (0-20); Puncture Site LRA
--- NOTE | 2020-02-26 07:53 | RAD ---
Chest one view HISTORY: Dyspnea. Pneumonia. Follow-up. COMPARISON: 02/25/2020. FINDINGS: Cardiac silhouette is magnified by projection and partially obscured by left pleural fluid and left lower lobe infiltrate. Pulmonary vasculature upper limits of normal. Mediastinum is midline with aortic calcification. Lines and tubes are unchanged in position. Infiltrate at the right base is less dense than on the prior study. No evidence of pneumothorax. IMPRESSION : Improved aeration of the right lower lobe. Left pleural fluid and basilar infiltrate are unchanged.
[2020-02-26] MEDS: Famotidine 20 MG TAB PER TUBE SCH (08:47)
[2020-02-26] MEDS: Insulin Glargine 8 UNITS in Pre-Filled Syringe 1 EACH SC SCH (08:47)
[2020-02-26] MEDS: Heparin 5,000 UNITS/ML VIAL SC SCH ×3 (08:47→21:06)
[2020-02-26] MEDS: Clopidogrel Bisulfate 75 MG TAB PO SCH (08:48)
[2020-02-26] MEDS: Saccharomyces boulardii 250 MG CAP PO SCH (08:48)
[2020-02-26] MEDS: Aspirin Chewable 81 MG TAB PO SCH (08:51)
--- NOTE | 2020-02-26 10:22 | PDOC.HOSPP ---
- Subjective Encounter Date: 02/26/20 Encounter Time: 10:20 Subjective: Ms. León was seen today in follow-up of respiratory failure and kidney failure. She is intubated and sedated. No problems voiced by staff. - Objective Vital Signs & Weight: Vital Signs (12 hours) Temp Pulse Resp BP Pulse Ox 02/26/20 10:00 20 02/26/20 08:00 20 02/26/20 07:29 140 H 98/67 02/26/20 07:22 97 02/26/20 06:00 20 02/26/20 04:38 150 H 02/26/20 04:33 146 H 85/42 L 02/26/20 04:00 98.2 F 21 H 02/26/20 02:33 152 H 98/79 02/26/20 02:00 20 02/26/20 00:26 106 H 137/81 02/26/20 00:23 105 H 20 90 L 02/26/20 00:00 98.4 F 20 Weight Admit Weight 209 lb Weight 213 lb 6.519 oz Most Recent Monitor Data Heart Rate from ECG 143 NIBP 100/62 NIBP BP-Mean 74 Respiration from ECG 20 SpO2 89 I&O: 02/25/20 02/26/20 02/27/20 06:59 06:59 06:59 Intake Total 1881 2360.3 60 Output Total 705 635 55 Balance 1176 1725.3 5 Result Diagrams: 02/26/20 03:11 02/26/20 03:11 Additional Labs: Accuchecks 02/26/20 02/25/20 02/25/20 04:07 22:11 15:57 POC Glucose 269 H 230 H 223 H Hospitalist ROS - Medication Medications: Active Medications Generic Name Dose Route Start Last Admin Trade Name Freq PRN Reason Stop Dose Admin Albuterol/Ipratropium 3 ml 02/23/20 19:00 02/26/20 07:27 Duoneb NEB 3 ml [id number] SARA Administration Aspirin 81 mg 02/24/20 09:00 02/26/20 08:51 Aspirin Chewable PO 81 mg DAILY SARA Administration Atorvastatin Calcium 20 mg 02/23/20 21:00 02/25/20 22:08 Lipitor PO 20 mg HS SARA Administration Clopidogrel Bisulfate 75 mg 02/24/20 09:00 02/26/20 08:48 Plavix PO 75 mg DAILY SARA Administration Famotidine 20 mg 02/26/20 09:00 02/26/20 08:47 Pepcid PER TUBE 20 mg DAILY SARA Administration Heparin Sodium (Porcine) 5,000 units 02/23/20 15:00 02/26/20 08:47 Heparin SC 5,000 units TID SARA Administration Fentanyl Citrate 2,000 mcg/ 100 mls @ 0 mls/hr 02/23/20 13:03 02/26/20 04:47 Sodium Chloride IV 03/24/20 13:03 100 mls INF SARA Administration Protocol Per Protocol Cefepime HCl 1 gm/ Sodium 100 mls @ 200 mls/hr 02/23/20 14:00 02/25/20 13:34 Chloride IVPB 100 mls Q24H SARA Administration Doxycycline Hyclate 100 mg/ 100 mls @ 100 mls/hr 02/23/20 14:00 02/26/20 01: 22 Sodium Chloride IVPB 100 mls 0200,1400 SARA Administration Dextrose/Sodium Chloride 1,000 mls @ 30 mls/hr 02/23/20 13:45 02/25/20 11:49 D5 0.9% Ns IV Not Given .Q24H SARA Sodium Bicarbonate 150 meq/ 1,150 mls @ 60 mls/hr 02/24/20 07:45 02/25/20 22: 09 Dextrose/Water IV 1,150 mls .[id number] SARA Administration Insulin Glargine 8 units/ 0.08 mls @ 0 mls/hr 02/24/20 21:00 02/26/20 08:47 Miscellaneous Medication SC 0.08 mls BID SARA Administration Insulin Human Regular 0 units 02/23/20 13:35 02/26/20 09:23 Humulin R SC 5 unit .MILD SLIDING SCALE PRN Administration Mild Correctional Scale Insulin Human Regular 0 units 02/23/20 13:35 02/25/20 22:09 Humulin R SC 2 unit .BEDTIME SLIDING SC PRN Administration Bedtime Correctional Scale Lorazepam 2 mg 02/23/20 13:55 02/25/20 03:49 Ativan SLOW IVP 03/24/20 13:55 2 mg Q1H PRN Administration Breakthrough agitation Methylprednisolone Sodium Succinate 40 mg 02/23/20 18:00 02/26/20 05:01 Solu-Medrol IVP 40 mg Q6HR SARA Administration Miscellaneous Medication 1 each 02/23/20 14:00 02/25/20 11:50 Ventilator Sedation Protocol FS 1 each 1400 SARA Administration Mometasone Furoate/Formoterol Fumar 2 puff 02/23/20 18:30 02/26/20 07:27 Dulera 200 Mcg/5 Mcg Inhaler INH 2 puff BID-RT SARA Administration Propofol 1,000 mg 02/23/20 13:55 02/25/20 23:52 Diprivan IV 03/24/20 13:55 1,000 mg INF PRN Administration TO ACHIEVE GOAL RASS Protocol Saccharomyces Boulardii 250 mg 02/24/20 09:00 02/26/20 08:48 Florastor PO 250 mg DAILY SARA Administration - Exam Eye: PERRL, anicteric sclera Heart: RRR, no murmur, no gallops, no rubs, normal peripheral pulses Respiratory: CTAB (+ coarse breath sounds, and rales at the bases) Gastrointestinal: soft, non-tender, non-distended, normal bowel sounds, no palpable masses, no hepatomegaly Extremities: no cyanosis, 1+ LE edema Hosp A/P (1) Acute and chronic respiratory failure with hypoxia Code(s): J96.21 - ACUTE AND CHRONIC RESPIRATORY FAILURE WITH HYPOXIA Status: Acute (2) COPD exacerbation Code(s): J44.1 - CHRONIC OBSTRUCTIVE PULMONARY DISEASE W (ACUTE) EXACERBATION Status: Acute (3) Hypertension Code(s): I10 - ESSENTIAL (PRIMARY) HYPERTENSION Status: Chronic (4) Diabetes mellitus type 2 in obese Code(s): E11.69 - TYPE 2 DIABETES MELLITUS WITH OTHER SPECIFIED COMPLICATION; E66.9 - OBESITY, UNSPECIFIED Status: Chronic (5) CAD (coronary artery disease) Code(s): I25.10 - ATHSCL HEART DISEASE OF [place] CORONARY ARTERY W/O ANG PCTRS Status: Chronic (6) Chronic kidney disease, stage 4 (severe) Code(s): N18.4 - CHRONIC KIDNEY DISEASE, STAGE 4 (SEVERE) Status: Acute - Plan * Acute on chronic respiratory failure due primary to volume overload, and acidosis from end stage renal disease * Ventilator management as per PCCM * Acute on chronic kidney injury, with severe metabolic acidosis- continue Bicarb drip, and can lower rate * DM- blood glucose is still elevated- will continue to titrate insulin * HTN- is stable * CAD- stable- Echo pending * COPD- stable * DVT and GI Prophylaxis * Nutritional support with tube feeding * Await addition guidance from the family
--- NOTE | 2020-02-26 11:08 | PRG ---
DATE OF SERVICE: 02/26/2020 SUBJECTIVE: The patient was seen in ICU, remains intubated. No family members at the bedside. OBJECTIVE: GENERAL: This is a well-built female, seen in ICU, intubated. VITAL SIGNS: Temperature 98.2, pulse 143, respiratory rate 20, blood pressure 100/62. HEENT: Intubated. CV: S1 and S2 heard. RESPIRATORY: Clear. GI: Abdomen is soft. MUSCULOSKELETAL: 1+ edema. DERMATOLOGIC: No skin rash. NEUROLOGICAL: Intubated. LABORATORY DATA: Potassium 4.6, BUN is 118, creatinine is 3.6. ASSESSMENT AND PLAN: 1. Acute kidney injury on chronic kidney disease, stage 4, with worsening labs. Creatinine is stable, but BUN is rising. Overall, clinical condition is also not promising. Family members are available, made her DNR yesterday and they did not wish to have any dialytic interventions or any aggressive measures for renal recovery. 2. Sepsis with multiorgan failure. 3. Acute hypoxic respiratory failure. 4. Metabolic acidosis, on bicarb drip. 5. Type 2 diabetes. 6. Coronary artery disease. 7. Anemia of chronic disease. 8. Leukocytosis. 9. Hyponatremia. 10. Chronic obstructive pulmonary disease. 11. New onset atrial fibrillation. Prognosis poor. Family does not wish any aggressive measures. Continue supportive care. We will follow. Continue discussion with family for goals of care. Job ID: [id number]
[2020-02-26] MEDS: Sodium Bicarbonate 150 MEQ in Dextrose 5% in Water 1,000 ML IV SCH (11:39)
[2020-02-26] MEDS: Lorazepam 2 MG/ML VIAL SLOW IVP PRN ×2 (13:42→15:12)
[2020-02-26] MEDS: Cefepime 1 GM in Sodium Chloride 0.9% 100 ML IVPB SCH (13:42)
[2020-02-26] MEDS: Ventilator Sedation Protocol 1 EACH FS SCH (13:43)
[2020-02-26] MEDS: Dextrose 5 % And 0.9 % NaCl 1,000 ML IV SCH (13:43)
--- NOTE | 2020-02-26 14:41 | PRG ---
DATE OF SERVICE: 02/26/2020 SUBJECTIVE: Jonna León has been made a do not resuscitate patient. OBJECTIVE: Heart rate is 130, blood pressure is 99/63, respiratory rate is 20. Intake and outputs, positive 1725. Lungs are distant and clear with slightly prolonged expiratory phase. Heart, regular rhythm. Abdomen is soft. Extremities without asymmetry. LABORATORY DATA: White count 14.9, hemoglobin 11.4, platelets 230,000. Sodium 134, potassium 4.6, chloride 102, bicarb 16, BUN 18, creatinine 3.6. IMPRESSION: Respiratory failure secondary to underlying chronic obstructive pulmonary disease and an inability to compensate from a respiratory standpoint with her metabolic acidosis that is brought on by her renal failure. We are awaiting family's decisions. She has an improved x-ray today. Her renal function may be plateauing. She actually might wean from mechanical ventilation with some supplemental bicarb if her renal function continues to stabilize. CRITICAL CARE TIME: 30 minutes. Job ID: [id number]
[2020-02-26] MEDS: Insulin Glargine 12 UNITS in Pre-Filled Syringe 1 EACH SC SCH (21:05)
[2020-02-26] MEDS: Atorvastatin Calcium 20 MG TAB PO SCH (21:06)
[2020-02-27] MEDS: methylPREDNISolone Sod Succ 40 MG VIAL IVP SCH ×5 (00:11→23:26)
[2020-02-27] MEDS: Sodium Bicarbonate 150 MEQ in Dextrose 5% in Water 1,000 ML IV SCH (02:14)
[2020-02-27] MEDS: Insulin Regular 300 UNITS/3 ML VIAL SC PRN ×4 (03:18→20:38)
[2020-02-27 04:07] LABS: Anion Gap 20 mmol/L (10-20); Calc. Creatinine Clearance 18 mL/min (70-130); Calcium 8.8 mg/dL (7.8-10.44); Carbon Dioxide 20 mmol/L (23-31); Chloride 100 mmol/L (98-107); Estimated GFR-MDRD 12; Glucose 421 mg/dL (83-110); Potassium 4.5 mmol/L (3.5-5.1); Sodium 135 mmol/L (136-145)
[2020-02-27 04:22] LABS: BUN (Urea Nitrogen) 118 mg/dL (9.8-20.1)
[2020-02-27 04:54] LABS: Band 8 % (5-11); Hemoglobin 11.9 g/dL (12.0-16.0); Lymphocytes 9 % (21-51); MDiff Complete? YES; Mean Corpuscular HGB CONC 32.1 g/dL (32.0-36.0); Mean Corpuscular Hemoglobin 29.1 pg (27.0-31.0); Mean Corpuscular Volume 90.7 fL (78.0-98.0); Metamyelocyte 2 % (0-0); Monocytes 3 % (0-10); Neutrophil 78 % (42-75); Nucleated RBC 2 % (0); Platelet Count 216 thou/uL (130-400); RBC Distribution Width 16.5 % (11.5-14.5); Red Blood Cell (RBC) Count 4.08 mill/uL (4.20-5.40); White Blood Cell (WBC) Count 11.6 thou/uL (4.8-10.8)
[2020-02-27] MEDS: Mometasone 200 MCG/Formoterol 5 MCG 120 PUFF INHALER INH SCH ×2 (06:50→18:41)
[2020-02-27] MEDS: Heparin 5,000 UNITS/ML VIAL SC SCH ×3 (08:36→20:35)
[2020-02-27] MEDS: Insulin Glargine 24 UNITS in Pre-Filled Syringe 1 EACH SC SCH (08:36)
[2020-02-27] MEDS: Clopidogrel Bisulfate 75 MG TAB PO SCH (08:37)
[2020-02-27] MEDS: Aspirin Chewable 81 MG TAB PO SCH (08:37)
[2020-02-27] MEDS: Saccharomyces boulardii 250 MG CAP PO SCH (08:37)
[2020-02-27] MEDS: Famotidine 20 MG TAB PER TUBE SCH (08:37)
[2020-02-27] MEDS: Dextrose 5 % And 0.9 % NaCl 1,000 ML IV SCH (08:39)
[2020-02-27] MEDS ORDERED: Insulin Glargine 12 UNITS in Pre-Filled Syringe 1 EACH SC SCH (09:00)
--- NOTE | 2020-02-27 10:02 | PDOC.HOSPP ---
- Subjective Encounter Date: 02/27/20 Encounter Time: 10:00 Subjective: Ms. León was seen today for follow-up of respiratory failure. She is currently intubated. - Objective Vital Signs & Weight: Vital Signs (12 hours) Temp Pulse Resp BP Pulse Ox 02/27/20 08:00 20 02/27/20 07:25 100 02/27/20 07:00 98 F 02/27/20 06:51 90 121/72 02/27/20 06:50 90 20 100 02/27/20 04:00 20 02/27/20 03:22 97 02/27/20 03:00 98.3 F 02/27/20 02:17 138 H 100/67 02/27/20 02:00 20 02/27/20 00:35 136 H 18 125/94 H 94 L 02/27/20 00:00 20 95 02/26/20 23:00 99.1 F 02/26/20 22:25 113 H 109/60 Weight Admit Weight 209 lb Weight 207 lb 10.807 oz Most Recent Monitor Data Heart Rate from ECG 92 NIBP 115/62 NIBP BP-Mean 79 Respiration from ECG 20 SpO2 100 I&O: 02/26/20 02/27/20 02/28/20 06:59 06:59 06:59 Intake Total 2360.3 2097 153.6 Output Total 635 560 120 Balance 1725.3 1537 33.6 Result Diagrams: 02/27/20 03:01 02/27/20 03:01 Additional Labs: Accuchecks 02/27/20 02/26/20 02/26/20 03:21 21:07 15:46 POC Glucose 423 H 400 H 405 H 02/26/20 09:25 POC Glucose 330 H Hospitalist ROS - Medication Medications: Active Medications Generic Name Dose Route Start Last Admin Trade Name Freq PRN Reason Stop Dose Admin Albuterol/Ipratropium 3 ml 02/23/20 19:00 02/27/20 06:50 Duoneb NEB 3 ml [id number] SARA Administration Aspirin 81 mg 02/24/20 09:00 02/27/20 08:37 Aspirin Chewable PO 81 mg DAILY SARA Administration Atorvastatin Calcium 20 mg 02/23/20 21:00 02/26/20 21:06 Lipitor PO 20 mg HS SARA Administration Clopidogrel Bisulfate 75 mg 02/24/20 09:00 02/27/20 08:37 Plavix PO 75 mg DAILY SARA Administration Famotidine 20 mg 02/26/20 09:00 02/27/20 08:37 Pepcid PER TUBE 20 mg DAILY SARA Administration Heparin Sodium (Porcine) 5,000 units 02/23/20 15:00 02/27/20 08:36 Heparin SC 5,000 units TID SARA Administration Fentanyl Citrate 2,000 mcg/ 100 mls @ 0 mls/hr 02/23/20 13:03 02/26/20 22:48 Sodium Chloride IV 03/24/20 13:03 100 mls INF SARA Administration Protocol Per Protocol Cefepime HCl 1 gm/ Sodium 100 mls @ 200 mls/hr 02/23/20 14:00 02/26/20 13:42 Chloride IVPB 100 mls Q24H SARA Administration Dextrose/Sodium Chloride 1,000 mls @ 30 mls/hr 02/23/20 13:45 02/27/20 08:39 D5 0.9% Ns IV Not Given .Q24H SARA Sodium Bicarbonate 150 meq/ 1,150 mls @ 40 mls/hr 02/26/20 10:23 02/27/20 02: 14 Dextrose/Water IV 1,150 mls .Q24H SARA Administration Insulin Glargine 12 units/ 0.12 mls @ 0 mls/hr 02/26/20 21:00 02/26/20 21:05 Miscellaneous Medication SC 0.12 mls HS SARA Administration Insulin Glargine 24 units/ 0.24 mls @ 0 mls/hr 02/27/20 09:00 02/27/20 08:36 Miscellaneous Medication SC 0.24 mls QAM SARA Administration Insulin Human Regular 0 units 02/23/20 13:35 02/27/20 09:56 Humulin R SC 6 unit .MILD SLIDING SCALE PRN Administration Mild Correctional Scale Insulin Human Regular 0 units 02/23/20 13:35 02/25/20 22:09 Humulin R SC 2 unit .BEDTIME SLIDING SC PRN Administration Bedtime Correctional Scale Lorazepam 2 mg 02/23/20 13:55 02/26/20 15:12 Ativan SLOW IVP 03/24/20 13:55 2 mg Q1H PRN Administration Breakthrough agitation Methylprednisolone Sodium Succinate 40 mg 02/23/20 18:00 02/27/20 05:21 Solu-Medrol IVP 40 mg Q6HR SARA Administration Miscellaneous Medication 1 each 02/23/20 14:00 02/26/20 13:43 Ventilator Sedation Protocol FS 1 each 1400 SARA Administration Mometasone Furoate/Formoterol Fumar 2 puff 02/23/20 18:30 02/27/20 06:50 Dulera 200 Mcg/5 Mcg Inhaler INH 2 puff BID-RT SARA Administration Propofol 1,000 mg 02/23/20 13:55 02/25/20 23:52 Diprivan IV 03/24/20 13:55 1,000 mg INF PRN Administration TO ACHIEVE GOAL RASS Protocol Saccharomyces Boulardii 250 mg 02/24/20 09:00 02/27/20 08:37 Florastor PO 250 mg DAILY SARA Administration - Exam Eye: PERRL Heart: RRR, no murmur, no gallops, no rubs, normal peripheral pulses Respiratory: rhonchi, wheezes Gastrointestinal: soft, non-tender, non-distended, normal bowel sounds Extremities: 1+ LE edema Hosp A/P (1) Acute and chronic respiratory failure with hypoxia Code(s): J96.21 - ACUTE AND CHRONIC RESPIRATORY FAILURE WITH HYPOXIA Status: Acute (2) COPD exacerbation Code(s): J44.1 - CHRONIC OBSTRUCTIVE PULMONARY DISEASE W (ACUTE) EXACERBATION Status: Acute (3) Hypertension Code(s): I10 - ESSENTIAL (PRIMARY) HYPERTENSION Status: Chronic (4) Diabetes mellitus type 2 in obese Code(s): E11.69 - TYPE 2 DIABETES MELLITUS WITH OTHER SPECIFIED COMPLICATION; E66.9 - OBESITY, UNSPECIFIED Status: Chronic (5) CAD (coronary artery disease) Code(s): I25.10 - ATHSCL HEART DISEASE OF [place] CORONARY ARTERY W/O ANG PCTRS Status: Chronic (6) Chronic kidney disease, stage 4 (severe) Code(s): N18.4 - CHRONIC KIDNEY DISEASE, STAGE 4 (SEVERE) Status: Acute - Plan * Acute on chronic respiratory failure due primary to volume overload, and acidosis from end stage renal disease * The patient's family has decided to extubate her today * Will place an order for Morphine and Ativan * DM- blood glucose is elevated- unclear etiology- will titrate insulin * HTN- blood pressure is stable
[2020-02-27] MEDS ORDERED: Hyoscyamine Sulfate SL 0.125 mg Tablet SL PRN (10:55)
--- NOTE | 2020-02-27 11:39 | PRG ---
DATE OF SERVICE: 02/27/2020 SUBJECTIVE: Jonna León is unchanged. She actually is tentatively scheduled to have support withdrawn with family today. OBJECTIVE: VITAL SIGNS: Have been stable. LUNGS: Distant and clear. HEART: Regular rhythm. ABDOMEN: Soft. EXTREMITIES: Without asymmetry or edema. LABORATORY DATA: White count 11.6, hemoglobin 11.9, platelets 216. Electrolytes; sodium 135, potassium 4.5, BUN is up to 119, creatinine is 3.71. PH is normalized with a bicarb drip at 7.38 yesterday. There is no blood gas today. IMPRESSION: Respiratory failure associated with asthma and severe metabolic acidosis. She will be extubated, but I suspect she will do reasonably well at least for some time. CRITICAL CARE TIME: 30 minutes. Job ID: [id number]
--- NOTE | 2020-02-27 12:44 | PRG ---
DATE OF SERVICE: 02/27/2020 SUBJECTIVE: The patient had compassionate extubation this morning, and family was at the bedside. OBJECTIVE: GENERAL: This is a well-built female, seen in ICU after extubation. VITAL SIGNS: Temperature 98.9, pulse 96, respiratory rate 14, blood pressure 134/77. HEENT: Atraumatic and normocephalic. CVS: S1 and S2 heard. RESPIRATORY: Clear. GI: Abdomen is soft. MUSCULOSKELETAL: No edema. DERMATOLOGIC: No skin rash. NEUROLOGIC: Lethargic. LABORATORY DATA: Potassium is 4.5, BUN is 118, creatinine is 3.7. ASSESSMENT AND PLAN: 1. Acute kidney injury on chronic kidney disease, stage 4, worsening. Her family decided to have a compassionate extubation today. Continue with palliative care. 2. Sepsis with multiorgan failure. 3. Metabolic acidosis. 4. Acute hypoxic respiratory failure. 5. Type 2 diabetes. 6. Coronary artery disease. Job ID: [id number] MTDD
[2020-02-27] MEDS: Ventilator Sedation Protocol 1 EACH FS SCH (13:12)
[2020-02-27] MEDS: Cefepime 1 GM in Sodium Chloride 0.9% 100 ML IVPB SCH (13:34)
[2020-02-27] MEDS: Insulin Glargine 12 UNITS in Pre-Filled Syringe 1 EACH SC SCH (20:35)
[2020-02-27] MEDS: Atorvastatin Calcium 20 MG TAB PO SCH (20:39)
[2020-02-27] MEDS: Doxycycline 100 MG CAP PO SCH (20:39)
[2020-02-28 05:06] LABS: Anion Gap 16 mmol/L (10-20); Calc. Creatinine Clearance 17 mL/min (70-130); Calcium 8.7 mg/dL (7.8-10.44); Carbon Dioxide 27 mmol/L (23-31); Chloride 99 mmol/L (98-107); Estimated GFR-MDRD 11; Glucose 226 mg/dL (83-110); Sodium 137 mmol/L (136-145)
[2020-02-28 05:12] LABS: Band 3 % (5-11); Hemoglobin 11.5 g/dL (12.0-16.0); Hypochromia SLIGHT = 6-15 cells (100X) (0-5/hpf); Lymphocytes 4 % (21-51); MDiff Complete? YES; Mean Corpuscular Hemoglobin 29.7 pg (27.0-31.0); Mean Corpuscular Volume 90.1 fL (78.0-98.0); Mean Platelet Volume 10.5 fL (7.4-10.4); Metamyelocyte 1 % (0-0); Monocytes 5 % (0-10); Neutrophil 87 % (42-75); Platelet Count 235 thou/uL (130-400); Platelet Morphology Comment Appears Adequate; RBC Distribution Width 16.3 % (11.5-14.5); Red Blood Cell (RBC) Count 3.88 mill/uL (4.20-5.40); Target Cells SLIGHT = 2-5 cells (100X) (0-1/hpf)
[2020-02-28 05:17] LABS: BUN (Urea Nitrogen) 130 mg/dL (9.8-20.1)
[2020-02-28] MEDS: Insulin Regular 300 UNITS/3 ML VIAL SC PRN (05:28)
[2020-02-28] MEDS: methylPREDNISolone Sod Succ 40 MG VIAL IVP SCH ×2 (05:28→18:27)
[2020-02-28] MEDS: Sodium Bicarbonate 150 MEQ in Dextrose 5% in Water 1,000 ML IV SCH (05:28)
[2020-02-28] MEDS: Morphine 2 MG/ML SYRINGE SLOW IVP PRN ×3 (05:46→20:07)
[2020-02-28] MEDS: Mometasone 200 MCG/Formoterol 5 MCG 120 PUFF INHALER INH SCH ×2 (09:52→19:21)
[2020-02-28] MEDS: Doxycycline 100 MG CAP PO SCH (10:39)
[2020-02-28] MEDS: Aspirin Chewable 81 MG TAB PO SCH (10:39)
[2020-02-28] MEDS: Saccharomyces boulardii 250 MG CAP PO SCH (10:39)
[2020-02-28] MEDS: Clopidogrel Bisulfate 75 MG TAB PO SCH (10:39)
[2020-02-28] MEDS: Heparin 5,000 UNITS/ML VIAL SC SCH ×2 (10:40→15:06)
[2020-02-28] MEDS: Famotidine 20 MG TAB PER TUBE SCH (12:00)
--- NOTE | 2020-02-28 12:07 | PDOC.HOSPP ---
- Subjective Encounter Date: 02/28/20 Encounter Time: 12:06 Subjective: Ms. León was seen today in follow-up of respiratory failure and renal failure. She will awaken, but she does not speak. She appears to be grimacing at times. - Objective Vital Signs & Weight: Vital Signs (12 hours) Temp Pulse Resp BP Pulse Ox 02/28/20 09:40 94 20 02/28/20 08:00 90 L 02/28/20 07:51 98.2 F 95 18 135/60 90 L Weight Admit Weight 209 lb Weight 207 lb 10.807 oz Most Recent Monitor Data Heart Rate from ECG 95 NIBP 144/81 NIBP BP-Mean 102 Respiration from ECG 14 SpO2 100 I&O: 02/27/20 02/28/20 02/29/20 06:59 06:59 06:59 Intake Total 2097 353.6 Output Total 560 490 300 Balance 1537 -136.4 -300 Result Diagrams: 02/28/20 04:40 02/28/20 04:40 Additional Labs: Accuchecks 02/27/20 02/27/20 20:38 17:06 POC Glucose 263 H 322 H Hospitalist ROS - Medication Medications: Active Medications Generic Name Dose Route Start Last Admin Trade Name Freq PRN Reason Stop Dose Admin Albuterol/Ipratropium 3 ml 02/23/20 19:00 02/28/20 09:40 Duoneb NEB 3 ml [id number] SARA Administration Aspirin 81 mg 02/24/20 09:00 02/28/20 10:39 Aspirin Chewable PO Not Given DAILY [facility] Atorvastatin Calcium 20 mg 02/23/20 21:00 02/27/20 20:39 Lipitor PO Not Given HS [facility] Clopidogrel Bisulfate 75 mg 02/24/20 09:00 02/28/20 10:39 Plavix PO Not Given DAILY [facility] Doxycycline Hyclate 100 mg 02/27/20 21:00 02/28/20 10:39 Vibramycin PO 03/01/20 09:01 Not Given BID [facility] Heparin Sodium (Porcine) 5,000 units 02/23/20 15:00 02/28/20 10:40 Heparin SC Not Given TID [facility] Cefepime HCl 1 gm/ Sodium 100 mls @ 200 mls/hr 02/23/20 14:00 02/27/20 13:34 Chloride IVPB 100 mls Q24H SARA Administration Dextrose/Sodium Chloride 1,000 mls @ 30 mls/hr 02/23/20 13:45 02/27/20 08:39 D5 0.9% Ns IV Not Given .Q24H SARA Sodium Bicarbonate 150 meq/ 1,150 mls @ 40 mls/hr 02/26/20 10:23 02/28/20 05: 28 Dextrose/Water IV 1,150 mls .Q24H SARA Administration Insulin Glargine 12 units/ 0.12 mls @ 0 mls/hr 02/26/20 21:00 02/27/20 20:35 Miscellaneous Medication SC 0.12 mls HS SARA Administration Insulin Glargine 24 units/ 0.24 mls @ 0 mls/hr 02/27/20 09:00 02/27/20 08:36 Miscellaneous Medication SC 0.24 mls QAM SARA Administration Insulin Human Regular 0 units 02/23/20 13:35 02/28/20 05:28 Humulin R SC 3 unit .MILD SLIDING SCALE PRN Administration Mild Correctional Scale Insulin Human Regular 0 units 02/23/20 13:35 02/27/20 20:38 Humulin R SC 3 unit .BEDTIME SLIDING SC PRN Administration Bedtime Correctional Scale Methylprednisolone Sodium Succinate 40 mg 02/23/20 18:00 02/28/20 05:28 Solu-Medrol IVP 40 mg Q6HR SARA Administration Mometasone Furoate/Formoterol Fumar 2 puff 02/23/20 18:30 02/28/20 09:52 Dulera 200 Mcg/5 Mcg Inhaler INH Not Given BID-RT [facility] Morphine Sulfate 2 mg 02/27/20 07:36 02/28/20 09:15 Morphine SLOW IVP 2 mg Q2H PRN Administration Pain>3 Saccharomyces Boulardii 250 mg 02/24/20 09:00 02/28/20 10:39 Florastor PO Not Given DAILY SARA - Exam Eye: PERRL Heart: RRR, no murmur, no gallops, no rubs, normal peripheral pulses Respiratory: CTAB (+ coarse breath sounds.) Gastrointestinal: soft, non-tender, non-distended, normal bowel sounds, no palpable masses Extremities: no cyanosis, no edema Hosp A/P (1) Acute and chronic respiratory failure with hypoxia Code(s): J96.21 - ACUTE AND CHRONIC RESPIRATORY FAILURE WITH HYPOXIA Status: Acute (2) COPD exacerbation Code(s): J44.1 - CHRONIC OBSTRUCTIVE PULMONARY DISEASE W (ACUTE) EXACERBATION Status: Acute (3) Hypertension Code(s): I10 - ESSENTIAL (PRIMARY) HYPERTENSION Status: Chronic (4) Diabetes mellitus type 2 in obese Code(s): E11.69 - TYPE 2 DIABETES MELLITUS WITH OTHER SPECIFIED COMPLICATION; E66.9 - OBESITY, UNSPECIFIED Status: Chronic (5) CAD (coronary artery disease) Code(s): I25.10 - ATHSCL HEART DISEASE OF [place] CORONARY ARTERY W/O ANG PCTRS Status: Chronic (6) Chronic kidney disease, stage 4 (severe) Code(s): N18.4 - CHRONIC KIDNEY DISEASE, STAGE 4 (SEVERE) Status: Acute - Plan * Acute on chronic respiratory failure due primary to volume overload, and acidosis from end stage renal disease * She is post extubation, and has been moved to Oncology floor. She is obtunded and not safe to take anything by mouth. * Will continue comfort measures, and await family to arrive to discuss her care going forward. * HTN- blood pressure is stable * DM- blood glucose is better.
--- NOTE | 2020-02-28 12:39 | PRG ---
DATE OF SERVICE: 02/28/2020 SUBJECTIVE: The patient was seen at the bedside. Family at the bedside. The patient is not responsive. OBJECTIVE: GENERAL: This is a well-built female, nonresponsive. VITAL SIGNS: Temperature 98.2, pulse 70, respiratory rate 18, blood pressure 134/60. HEENT: Atraumatic, normocephalic. CV: S1 and S2 heard. NEUROLOGIC: Obtunded. LABORATORY DATA: Potassium 5.0, BUN is 130, creatinine is 3.8. ASSESSMENT AND PLAN: 1. Acute kidney injury on chronic kidney disease, stage 4 with worsening labs and uremia getting worse. The patient obtunded. Family had a compassionate extubation awaiting for comfort measures to be implemented. 2. Sepsis with multiorgan failure. 3. Metabolic acidosis. 4. Type 2 diabetes. 5. Family wishes not to pursue any aggressive measures for renal replacement therapy. I will sign off. Continue palliative care. Job ID: [id number]
[2020-02-28 14:36] VITALS: BMI 38.0
--- NOTE | 2020-02-28 15:27 | PDOC.FMACP ---
Advance Care Planning - Problem (1) Acute and chronic respiratory failure with hypoxia Status: Acute Code(s): J96.21 - ACUTE AND CHRONIC RESPIRATORY FAILURE WITH HYPOXIA (2) COPD exacerbation Status: Acute Code(s): J44.1 - CHRONIC OBSTRUCTIVE PULMONARY DISEASE W (ACUTE ) EXACERBATION (3) Hypertension Status: Chronic Code(s): I10 - ESSENTIAL (PRIMARY) HYPERTENSION (4) Diabetes mellitus type 2 in obese Status: Chronic Code(s): E11.69 - TYPE 2 DIABETES MELLITUS WITH OTHER SPECIFIED COMPLICATION; E66.9 - OBESITY, UNSPECIFIED (5) CAD (coronary artery disease) Status: Chronic Code(s): I25.10 - ATHSCL HEART DISEASE OF [place] CORONARY ARTERY W/O ANG PCTRS (6) Chronic kidney disease, stage 4 (severe) Status: Acute Code(s): N18.4 - CHRONIC KIDNEY DISEASE, STAGE 4 (SEVERE) - Note Summary: Advanced Care Planning was discussed. The diagnosis, prognosis and goals of care were discussed. Discussed with the patient's sister and MPOA. Even though she survived the night, her condition is terminal. Her sister confirmed again that she would not want dialysis. They are agreeable to Hospice going forward. The Palliative Care Team will be engaged to assist with completion of any outstanding forms that are needed. Time Spent (mins): 20
[2020-02-28] MEDS ORDERED: Sodium Bicarbonate 150 MEQ in Dextrose 5% in Water 1,000 ML IV SCH (16:42)
[2020-02-28] MEDS: Insulin Glargine 24 UNITS in Pre-Filled Syringe 1 EACH SC SCH (18:27)
[2020-02-28] MEDS: Cefepime 1 GM in Sodium Chloride 0.9% 100 ML IVPB SCH (18:27)
[2020-02-28] MEDS: Dextrose 5 % And 0.9 % NaCl 1,000 ML IV SCH (20:10)
[2020-02-28] MEDS: Lorazepam 2 MG/ML VIAL SLOW IVP PRN (22:47)
[2020-02-29] MEDS: Lorazepam 2 MG/ML VIAL SLOW IVP PRN ×6 (04:23→19:20)
[2020-02-29] MEDS: Mometasone 200 MCG/Formoterol 5 MCG 120 PUFF INHALER INH SCH ×2 (06:39→19:21)
[2020-02-29 07:12] LABS: Band 9 % (5-11); Hemoglobin 11.5 g/dL (12.0-16.0); Lymphocytes 4 % (21-51); MDiff Complete? YES; Mean Corpuscular HGB CONC 30.3 g/dL (32.0-36.0); Mean Corpuscular Hemoglobin 27.3 pg (27.0-31.0); Mean Corpuscular Volume 90.1 fL (78.0-98.0); Mean Platelet Volume 10.9 fL (7.4-10.4); Monocytes 1 % (0-10); Neutrophil 86 % (42-75); Platelet Count 265 thou/uL (130-400); Platelet Morphology Comment Appears Adequate; RBC Distribution Width 16.3 % (11.5-14.5); Red Blood Cell (RBC) Count 4.22 mill/uL (4.20-5.40); White Blood Cell (WBC) Count 20.8 thou/uL (4.8-10.8)
[2020-02-29 07:17] LABS: Anion Gap 18 mmol/L (10-20); Calc. Creatinine Clearance 19 mL/min (70-130); Calcium 8.6 mg/dL (7.8-10.44); Carbon Dioxide 26 mmol/L (23-31); Chloride 102 mmol/L (98-107); Estimated GFR-MDRD 13; Glucose 291 mg/dL (83-110); Potassium 4.8 mmol/L (3.5-5.1); Sodium 141 mmol/L (136-145)
[2020-02-29 07:30] LABS: BUN (Urea Nitrogen) 125 mg/dL (9.8-20.1)
[2020-02-29] MEDS: Clopidogrel Bisulfate 75 MG TAB PO SCH (08:30)
[2020-02-29] MEDS: Saccharomyces boulardii 250 MG CAP PO SCH (08:31)
[2020-02-29] MEDS: Famotidine 20 MG TAB PER TUBE SCH (10:57)
[2020-02-29] MEDS: Morphine 2 MG/ML SYRINGE SLOW IVP PRN (17:54)
--- NOTE | 2020-02-29 18:45 | PDOC.HOSPP ---
- Subjective Encounter Date: 02/29/20 Encounter Time: 10:30 Subjective: pt in bed obtunded, unable to open her eyes. family at bedside. - Objective Vital Signs & Weight: Vital Signs (12 hours) Temp Pulse Resp BP Pulse Ox 02/29/20 13:35 82 20 02/29/20 08:30 94 L 02/29/20 08:00 98.0 F 104 H 20 137/72 94 L Weight Admit Weight 209 lb 10.554 oz Weight 207 lb 10.807 oz Most Recent Monitor Data Heart Rate from ECG 95 NIBP 144/81 NIBP BP-Mean 102 Respiration from ECG 14 SpO2 100 I&O: 02/28/20 02/29/20 03/01/20 06:59 06:59 06:59 Intake Total 353.6 360 Output Total 490 1500 900 Balance -136.4 -1500 -540 Result Diagrams: 02/29/20 06:50 02/29/20 06:50 Hospitalist ROS - Review of Systems Other: unable to obtain - Medication Medications: Active Medications Generic Name Dose Route Start Last Admin Trade Name Freq PRN Reason Stop Dose Admin Albuterol/Ipratropium 3 ml 02/23/20 19:00 02/29/20 13:35 Duoneb NEB 3 ml [id number] SARA Administration Clopidogrel Bisulfate 75 mg 02/24/20 09:00 02/29/20 08:30 Plavix PO Not Given DAILY [facility] Famotidine 20 mg 02/28/20 12:00 02/29/20 10:57 Pepcid PER TUBE Not Given 1200 [facility] Dextrose/Sodium Chloride 1,000 mls @ 30 mls/hr 02/23/20 13:45 02/28/20 20:10 D5 0.9% Ns IV 1,000 mls .Q24H SARA Administration Insulin Human Regular 0 units 02/23/20 13:35 02/28/20 05:28 Humulin R SC 3 unit .MILD SLIDING SCALE PRN Administration Mild Correctional Scale Insulin Human Regular 0 units 02/23/20 13:35 02/27/20 20:38 Humulin R SC 3 unit .BEDTIME SLIDING SC PRN Administration Bedtime Correctional Scale Lorazepam 1 mg 02/27/20 07:35 02/29/20 16:56 Ativan SLOW IVP 1 mg Q2H PRN Administration Anxiety/Agitation Mometasone Furoate/Formoterol Fumar 2 puff 02/23/20 18:30 02/29/20 06:39 Dulera 200 Mcg/5 Mcg Inhaler INH Not Given BID-RT [facility] Morphine Sulfate 2 mg 02/27/20 07:36 02/29/20 17:54 Morphine SLOW IVP 2 mg Q2H PRN Administration Pain>3 Saccharomyces Boulardii 250 mg 02/24/20 09:00 02/29/20 08:31 Florastor PO Not Given DAILY [facility] Hosp A/P - Plan spoke with pt's family and cleared the confusion about feeding. pt is going to hospice and can have pleasure feeding. Family at bedside understands. pt will be reevaluated for inpatient hospice if not family will take her home with hospice.
[2020-02-29] MEDS: Dextrose 5 % And 0.9 % NaCl 1,000 ML IV SCH (19:23)
[2020-02-29 19:42] VITALS: BP 178/92; TEMP 97.8
--- NOTE | 2020-03-02 08:28 | DIS ---
DATE OF ADMISSION: 02/23/2020 DATE OF DISCHARGE: 02/29/2020 DISCHARGE DIAGNOSES: As of the following; 1. Acute on chronic respiratory failure with hypoxia. 2. Chronic obstructive pulmonary disease exacerbation. 3. Hypertension. 4. Diabetes. 5. Chronic kidney disease, stage 4. 6. Coronary artery disease. HOSPITAL COURSE: The patient is an 84-year-old female, who initially presented to the hospital with respiratory failure secondary to volume overload and was found to be acidotic from her chronic kidney disease. She initially was intubated. She was intubated in the ER and was admitted into the ICU for further evaluation. Per the notes, the patient did not want dialysis. At this time, family decided to make the patient DNAR. her labs continued to worsen. She underwent a decision of the family of compassionate extubation and comfort measures was initiated. Initially, there were some concerns for feedings; however, I had discussed this with the family member and the patient was then transitioned to hospice and no feeding was initiated. I did speak with the family member stating that pleasure feeding was okay if the patient became more awake. However, on my assessment, she was significantly obtunded. The patient at this time was transitioned to inpatient hospice. Her medications will be titrated by the inpatient hospice services. Job ID: [id number]
--- NOTE | 2020-03-03 05:26 | PQF ---
CARMEL MCMAHON KARISHMA [id number] CLINICAL DOCUMENTATION CLARIFICATION FORM: POST DISCHARGE Addendum to original discharge summary date: ____ Late entry note date: __ DATE: 03/03/2020 ATTN:Elena Lane Please exercise your independent, professional judgment in responding to the clarification form. Clinical indicators are provided on the bottom of this form for your review Please check appropriate box(s): [ ] Acute on chronic respiratory failure related to sepsis [ ] Acute on chronic respiratory failure not related to sepsis [ ] Other diagnosis [x ] Unable to determine For continuity of documentation, please document condition throughout progress notes and discharge summary. Thank You. CLINICAL INDICATORS - SIGNS / SYMPTOMS / LABS 02/22 "Acute on chronic hypoxic respiratory failure" Query "Sepsis ruled in" DS 02/28 "respiratory failure secondary to volume overload and was found to be acidotic" 02/27 "sepsis with multiorgan failure" ED Notes 02/22 "patient presents for evaluation of dyspnea" 02/22 "moderate to severe respiratory distress" 02/22 "lungs:bibasilar raled with rhonchi" 02/22 "There was significant accessory muscle use" 02/22 "there was scattered wheezing" Labs blood gas 02/22: Ph=7.16 pc02=46.2 p02=82.5 02 sat=93.0 RISK FACTORS Emphysema-ED Notes 02/22 DM-ED Notes 02/22 84 years old female- 02/22 CHF- 02/22 CKD stage 4- 02/22 Former Smoker- 02/22 PNA- 02/22 Severe sepsis- 02/22 TREATMENTS: Chest Xray-Collected 02/22 Intubation with ventilation-ED Notes 02/22 Covid testing- 02/22 Lasix 20mg Oral-NOV 21 Mometasone 2puff Neb-NOV 21 (This form is maintained as a part of the permanent medical record) 2014 [email or web address] All Rights Reserved [email or web address]
--- NOTE | 2020-03-06 15:54 | EKG ---
Test Reason : Blood Pressure : / mmHG Vent. Rate : 130 BPM Atrial Rate : 130 BPM P-R Int : 148 ms QRS Dur : 146 ms QT Int : 306 ms P-R-T Axes : 043 -77 054 degrees QTc Int : 450 ms Sinus tachycardia Left axis deviation Right bundle branch block Moderate voltage criteria for LVH, may be normal variant Inferior infarct , age undetermined Anterolateral infarct , age undetermined Abnormal ECG Confirmed by LINDA GILMORE M.D. ([id number]), editor at large JOSE MANUEL EDWARDS ([id number]) on 03/06/2020 3:54:04 PM Referred By: Confirmed By:LINDA GILMORE M.D.
== END 2020-02-29 21:08 | disposition hospice, inpatient (51) | DRG 871 ==
LOC: ERS 10:08 → CCU 12:08 → ONC 02-27 15:15
PROVIDERS: ADMIT Internal Medicine; ATTEND Internal Medicine
PROC: 0BH17EZ Insertion of Endotracheal Airway into Trachea, Via Natural or Artificial Opening (ICD-10-PCS; principal; 2020-02-23)
PROC: 3E033XZ Introduction of Vasopressor into Peripheral Vein, Percutaneous Approach (ICD-10-PCS; 2020-02-23)
PROC: 5A1945Z Respiratory Ventilation, 24-96 Consecutive Hours (ICD-10-PCS; 2020-02-23)
DX: A41.9 Sepsis, unspecified organism (principal); J96.21 Acute and chronic respiratory failure with hypoxia; J18.9 Pneumonia, unspecified organism; I50.23 Acute on chronic systolic (congestive) heart failure; I13.0 Hypertensive heart and chronic kidney disease with heart failure and stage 1 through stage 4 chronic kidney disease, or unspecified chronic kidney disease; N18.4 Chronic kidney disease, stage 4 (severe); Z20.828 Contact with and (suspected) exposure to other viral communicable diseases; Z66 Do not resuscitate; Z51.5 Encounter for palliative care; N17.9 Acute kidney failure, unspecified; I42.8 Other cardiomyopathies; E87.2 Acidosis; E87.1 Hypo-osmolality and hyponatremia; J43.9 Emphysema, unspecified; E78.5 Hyperlipidemia, unspecified; Z96.652 Presence of left artificial knee joint; I25.10 Atherosclerotic heart disease of native coronary artery without angina pectoris; E11.22 Type 2 diabetes mellitus with diabetic chronic kidney disease; K44.9 Diaphragmatic hernia without obstruction or gangrene; K57.90 Diverticulosis of intestine, part unspecified, without perforation or abscess without bleeding; I08.1 Rheumatic disorders of both mitral and tricuspid valves; E66.01 Morbid (severe) obesity due to excess calories; D63.1 Anemia in chronic kidney disease; R65.20 Severe sepsis without septic shock; I48.91 Unspecified atrial fibrillation; Z90.710 Acquired absence of both cervix and uterus; Z99.81 Dependence on supplemental oxygen; Z87.891 Personal history of nicotine dependence; Z87.11 Personal history of peptic ulcer disease; Z68.38 Body mass index [BMI] 38.0-38.9, adult; Z79.82 Long term (current) use of aspirin; Z79.51 Long term (current) use of inhaled steroids; Z79.899 Other long term (current) drug therapy
CPT/HCPCS: 31500; 36415; 36416; 51702; 71045; 80048; 80053; 81003; 81015; 82533; 82550; 82553; 82728; 82805; 83605; 83690; 83880; 84484; 85025; 85379; 85610; 85730; 86140; 87040; 87635; 93005; 93010; 93306; 94002; 94003; 94640; 94660; 94760; 96361; 96365; 96367; 96375; J0456; J0692; J0696; J1160; J1644; J1815; J2060; J2270; J2704; J2920; J2930; J3010; J3475; J3490; J7030; J7070; J7620; S0028; U0003